=== PATIENT | male | born 1945 | race Caucasian/White ===

== ENCOUNTER 2016-10-31 07:48 | Day surgery (SDC) | payer MEDICARE, BC ==
[2016-10-31] MEDS ORDERED: LACTATED RINGERS 1,000 ML IV ONE (08:13)
[2016-10-31] MEDS ORDERED: MIDAZOLAM 2 MG/2 ML VIAL IVP ONE (09:50)
[2016-10-31] MEDS ORDERED: fentaNYL 250 MCG/5 ML VIAL IVP ONE (09:50)
== END 2016-10-31 07:49 | disposition home or self-care (01) ==
PROC: 0DBN8ZX Excision of Sigmoid Colon, Via Natural or Artificial Opening Endoscopic, Diagnostic (ICD-10-PCS; 2016-10-31)
PROC: 0DBH8ZX Excision of Cecum, Via Natural or Artificial Opening Endoscopic, Diagnostic (ICD-10-PCS; principal; 2016-10-31 09:00)
DX: D12.0 Benign neoplasm of cecum (principal); D12.5 Benign neoplasm of sigmoid colon; K64.8 Other hemorrhoids; K57.30 Diverticulosis of large intestine without perforation or abscess without bleeding; I10 Essential (primary) hypertension; Z79.82 Long term (current) use of aspirin; Z85.118 Personal history of other malignant neoplasm of bronchus and lung; Z92.21 Personal history of antineoplastic chemotherapy; Z92.3 Personal history of irradiation; Z82.49 Family history of ischemic heart disease and other diseases of the circulatory system; J44.9 Chronic obstructive pulmonary disease, unspecified
CPT/HCPCS: 45385; J7120

== ENCOUNTER 2016-11-16 11:56 | Outpatient (CLI) | payer MEDICARE, BC | END 2016-11-16 11:57 | disposition home or self-care (01) | DX: E29.8 Other testicular dysfunction (principal) ==

== ENCOUNTER 2016-12-19 14:20 | Outpatient (CLI) | payer MEDICARE, BC | END 2016-12-19 14:21 | disposition home or self-care (01) | DX: E29.8 Other testicular dysfunction (principal) ==

== ENCOUNTER 2017-10-05 13:49 | Outpatient (CLI) | payer MEDICARE, BC | END 2017-10-05 13:50 | disposition home or self-care (01) | LOC: DI 13:49 | PROVIDERS: ATTEND Family Medicine | DX: R06.01 Orthopnea (principal); I10 Essential (primary) hypertension; I51.7 Cardiomegaly | CPT/HCPCS: 93306 ==

== ENCOUNTER 2017-10-16 15:26 | Outpatient (CLI) | payer MEDICARE, BC | END 2017-10-16 15:27 | disposition home or self-care (01) | LOC: SC 15:26 | PROVIDERS: ATTEND Internal Medicine Pulmonary Disease | DX: G47.10 Hypersomnia, unspecified (principal); G47.8 Other sleep disorders; R06.83 Snoring | CPT/HCPCS: 99203; G0463; 99212 ==

== ENCOUNTER 2018-01-17 11:56 | Outpatient (CLI) | payer MEDICARE, BC ==
--- NOTE | 2018-01-18 08:36 | Nuclear Medicine Report ---
Procedure Date: 01/17/2018 Accession Number: [id number] / [id number] Procedure: NM - Bone Whole Body CPT Code: FULL RESULT: EXAM: BONE SCAN EXAM DATE: 01/17/2018 03:33 PM. CLINICAL HISTORY: BONE CANCER METS, LUNG CANCER. COMPARISON: CT 01/04/2018. TECHNIQUE: Following the intravenous administration of 30.9 mCi of technetium 99m MDP and an appropriate delay, a whole-body scan was performed in anterior and posterior projections. FINDINGS: Exam Quality: Normal overall osseous radiotracer uptake. Physiological tracer uptake in bilateral collecting systems. Skull: No focal uptake. Thorax: No focal lesions in ribs or sternum. Pelvis: No focal lesions. Spine: There is mildly increased uptake in the lower thoracic spine and in the mid to lower lumbar spine corresponding with degenerative endplate changes on CT. Extremities: There are small foci of increased uptake in the medial compartments of both knees and in the right greater than left wrists which is presumably degenerative. There is a tiny focus of increased uptake in the distal left fibula. There is a small focus of increased uptake in the region of the right great toe MTP joint. IMPRESSION: 1. There is a small focus of increased uptake in the distal left fibula which is of unclear etiology, metastasis not excluded. 2. 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 3. Presumed degenerative uptake in the wrists, knees, and right great toe MTP joint. [facility] ADDENDUM: 02/09/18 13:00 There was a voice recognition intensive care anaesthetist error. Under impression 2, "nodes or finding" should read "no other findings"
== END 2018-01-17 11:57 | disposition home or self-care (01) ==
LOC: DI 11:56
PROVIDERS: ATTEND Internal Medicine
DX: C34.90 Malignant neoplasm of unspecified part of unspecified bronchus or lung (principal)
CPT/HCPCS: 78306; A9503

== ENCOUNTER 2018-01-18 13:27 | Outpatient (CLI) | payer MEDICARE, BC ==
[~2018-01-18 13:27] MED LIST: GADOBUTROL 10 MMOL/10 ML VIAL ONE
[2018-01-18] MEDS ORDERED: IOPAMIDOL-300 100 ML VIAL ONE (13:47)
[2018-01-18] MEDS ORDERED: GADOBUTROL 10 MMOL/10 ML VIAL IVP ONE (14:09)
--- NOTE | 2018-01-18 15:03 | CT Report ---
Procedure Date: 01/18/2018 Accession Number: [id number] / [id number] Procedure: CT - Neck Soft Tissue W/ CPT Code: FULL RESULT: EXAM: Neck Soft Tissue W/ DATE: 01/18/2018 1:49 PM CLINICAL HISTORY: BONE CANCER METS, LUNG CANCER COMPARISON: None. TECHNIQUE: Routine soft tissue neck CT protocol. IV contrast: 80 mL Isovue 300 Reconstructions: Coronal and sagittal. In accordance with CT protocol optimization, one or more of the following dose reduction techniques were utilized for this exam: automated exposure control, adjustment of mA and/or KV based on patient size, or use of iterative reconstructive technique. FINDINGS: Bones: Degenerative changes. No evidence of fracture. Glands: The salivary glands, thyroid gland, and tonsillar tissues are normal in size and enhancement. Soft Tissues: Normal. No adenopathy, abscess, or mass. No airway narrowing. No foreign bodies identified. Other: Please refer to previous chest CT of 01/04/2018 and chest x-ray 01/18/2018 for lung findings. IMPRESSION: No evidence of metastatic disease in the neck. RADIA
[2018-01-18] MEDS ORDERED: IOPAMIDOL-300 100 ML VIAL IVP ONE (15:50)
--- NOTE | 2018-01-19 09:59 | MRI Report ---
Procedure Date: 01/18/2018 Accession Number: [id number] / [id number] Procedure: MRI - Brain W/WO CPT Code: FULL RESULT: EXAM: MRI BRAIN WITHOUT AND WITH CONTRAST EXAM DATE: 01/18/2018 02:04 PM. CLINICAL HISTORY: BONE CANCER METS, LUNG CANCER. COMPARISON: None. TECHNIQUE: Multiplanar, multisequence T1-weighted and fluid-sensitive MR sequences of the brain were performed. Sequences optimized for routine evaluation. Other: None. IV Contrast: 10 mL Gadavist. FINDINGS: The images are degraded by motion. This is greatest on the postcontrast images. The diffusion-weighted images are normal. There is no evidence of acute or subacute cerebral infarction. The pituitary and sella are normal. The corpus callosum is of normal size and configuration. The craniocervical junction is normal. There are multiple mucous retention cysts at the base of the right and left maxillary sinuses. There is atrophy demonstrated within the right paraspinal musculature at the skull base. Recommend correlation. There is tortuosity of the left vertebral artery intradural segment producing mass effect against the ventral left medulla oblongata. There is no underlying edema demonstrated at this location. There is a small focus of encephalomalacia of the left parietal lobe. The FLAIR images demonstrate multiple punctate and confluent areas of T2 hyperintensity within the subcortical, deep, and periventricular white matter. This is consistent with a mild to moderate degree of chronic small vessel ischemia. There is no significant generalized volume loss. The postcontrast T1-weighted images grossly normal. There is no large area of abnormal enhancement to suggest a large area of brain metastasis. IMPRESSION: 1. The images are degraded by motion. This is greatest on the postcontrast images. Given this limitation there is no large area of abnormal contrast enhancement to suggest a large metastatic lesion. 2. There is no evidence of acute or subacute cerebral infarction. 3. There is mild to moderate degree of chronic small vessel ischemia .
== END 2018-01-18 13:28 | disposition home or self-care (01) ==
LOC: DI 13:27
PROVIDERS: ATTEND Internal Medicine
DX: C34.90 Malignant neoplasm of unspecified part of unspecified bronchus or lung (principal); R59.0 Localized enlarged lymph nodes; R91.8 Other nonspecific abnormal finding of lung field; J44.9 Chronic obstructive pulmonary disease, unspecified; I10 Essential (primary) hypertension
CPT/HCPCS: 70491; 70553; 71046; 93005; A9585; Q9967

== ENCOUNTER 2018-01-18 13:27 | Outpatient (CLI) | payer MEDICARE, BC ==
--- NOTE | 2018-01-18 14:50 | XRAY Report ---
Procedure Date: 01/18/2018 Accession Number: [id number] / [id number] Procedure: XR - Chest 2 View X-Ray CPT Code: 45043 FULL RESULT: EXAM: Chest 2 View X-Ray DATE: 01/18/2018 2:40 PM CLINICAL HISTORY: HYPERTENSION/LUNG CANCER, COPD COMPARISON: 09/15/2017 TECHNIQUE: 2 views. FINDINGS: Lungs/Pleura: New right-sided infiltrates. Persistent left hilar fullness. No effusion or pneumothorax. Mediastinum: Persistent left hilar fullness. No cardiomegaly. Other: Right jugular port extending out the right subclavian, stable. IMPRESSION: New right-sided infiltrates. Stable left hilar lesion. RADIA
== END 2018-01-18 13:28 | disposition home or self-care (01) ==
LOC: DI 13:27
PROVIDERS: ATTEND Internal Medicine Gastroenterology
DX: R91.8 Other nonspecific abnormal finding of lung field (principal); C34.90 Malignant neoplasm of unspecified part of unspecified bronchus or lung; J44.9 Chronic obstructive pulmonary disease, unspecified; I10 Essential (primary) hypertension
CPT/HCPCS: 71046

== ENCOUNTER 2018-01-22 08:51 | Day surgery (SDC) | payer MEDICARE, BC ==
[2018-01-22] MEDS ORDERED: LACTATED RINGERS 1,000 ML IV ONE ×2 (09:31→14:00)
[2018-01-22] MEDS ORDERED: ceFAZolin 3 GM/20 ML SYRINGE ONE (09:38)
[2018-01-22] MEDS ORDERED: IPRATROPIUM/ALBUTEROL 3 ML NEB INH ONE (09:38)
[2018-01-22] MEDS ORDERED: BUPIVACAINE 0.5%-EPI 1:200000 PF 30 ML VIAL ONE (13:05)
[2018-01-22] MEDS ORDERED: LIDOCAINE 1% 50 ML MDV SUBQ ONE ×2 (13:40)
[2018-01-22] MEDS ORDERED: LIDOCAINE-MPF 2% 5 ML VIAL IM ONE (13:55)
[2018-01-22] MEDS ORDERED: MIDAZOLAM 2 MG/2 ML VIAL IVP ONE (13:55)
[2018-01-22] MEDS ORDERED: ONDANSETRON 4 MG/2 ML VIAL IVP ONE (13:55)
[2018-01-22] MEDS ORDERED: PROPOFOL 200 MG/20 ML VIAL IVP ONE (13:55)
[2018-01-22] MEDS ORDERED: fentaNYL 100 MCG/2 ML VIAL IVP ONE (13:55)
--- NOTE | 2018-01-22 15:41 | XRAY Report ---
Procedure Date: 01/22/2018 Accession Number: [id number] / [id number] Procedure: XR - Chest for Line Placement CPT Code: FULL RESULT: EXAM: Chest for Line Placement DATE: 01/22/2018 3:16 PM CLINICAL HISTORY: post line placement COMPARISON: None. TECHNIQUE: Single view of the chest. FINDINGS/IMPRESSION: Left Port-A-Cath ends in the inferior third of the superior vena cava. No pneumothorax is seen. RADIA
[2018-01-22 15:48] VITALS: BP 128/80
--- NOTE | 2018-01-23 02:34 | PROCEDURE REPORT ---
DATE OF SERVICE: Physician: Presley Frey MD PREOPERATIVE DIAGNOSES: 1. Stage IV lung cancer. 2. Malfunctioning port. POSTOPERATIVE DIAGNOSES: 1. Stage IV lung cancer. 2. Malfunctioning port. PROCEDURE PERFORMED: 1. Insertion of standard profile PowerPort on the left. 2. Removal of malfunctioning port on the right. ANESTHESIA: Local plus monitored anesthesia care. SURGEON: Presley Frey MD ESTIMATED BLOOD LOSS: Minimal. COMPLICATIONS: None. FINDINGS: A standard profile PowerPort was placed with the reservoir in a subcutaneous pocket in the left anterior chest wall. Catheter tip was located in the superior vena cava and access was the left subclavian vein. On the right side, the old port was removed with the entire attached catheter. INDICATIONS FOR PROCEDURE: Neto Vazquez is a 72-year-old gentleman with stage IV lung cancer in need of palliative chemotherapy. He had a prior port placed several years ago which is now malfunctioning and malpositioned and he was advised to undergo removal of the old port and placement of a new port. TECHNIQUE: After informed consent, the patient was taken to the operating room where he was sedated and monitored. Preoperative preparation included application of sequential calf compression boots and administration of 2 grams cefazolin intravenously within an hour of the incision. His anterior chest wall and neck were prepared with ChloraPrep solution and draped in the usual sterile fashion. Lidocaine 1% plain and 0.5% Marcaine with epinephrine was used for local infiltration anesthesia; approximately 20 mL of each were used. A stab wound was made in the left anterior chest wall below the midclavicular line with an #11 blade and a needle and syringe were used to identify the left subclavian vein. A guidewire was passed into the central venous circulation and position was confirmed with fluoroscopy. The needle was removed. The tract was dilated and the 8-[place] catheter, which had been flushed with sterile saline for injection, was then inserted into the central venous circulation and catheter tip position again confirmed with fluoroscopy. The breakaway catheter was removed. The incision was extended medially approximately 3-4 cm. Hemostasis was achieved with electrocautery. Subcutaneous pocket was created of sufficient size to allow placement of the port reservoir. The reservoir was flushed with saline soaked in antibiotic solution containing a gram of Ancef per liter. After the pocket had been created and hemostasis assured, the wound was irrigated with antibiotic solution. The catheter was trimmed to appropriate length and attached to the hub of the reservoir with the locking device properly positioned and attached to the hub overlying the catheter. The reservoir was then placed in the pocket and secured in place with two 4-0 nylon sutures to the pectoral fascia. The wound was then irrigated with antibiotic solution and closed in layers with continuous 3-0 Vicryl reapproximating subcutaneous tissues and 4-0 Monocryl subcuticular skin closure, followed by Dermabond. A Gutierrez needle was used to access the port percutaneously. It was seen to aspirate blood and flush easily. The port was flushed with 20 mL of sterile saline. Attention was turned to the contralateral side where a transverse incision was made over the prior port insertion site, carried down through subcutaneous tissues. The capsule surrounding the reservoir was entered and the port fully mobilized and exteriorized. The catheter was then mobilized with sharp dissection until it was free of scar tissue and then was removed in its entirety and discarded. After hemostasis was assured, the wound was closed in layers using 3-0 Vicryl to reapproximate the deep subcutaneous tissues, a similar suture for the superficial subcutaneous tissues, followed by 4-0 Monocryl subcuticular skin closure and Dermabond. The procedure was then terminated and patient transferred to the [facility] in satisfactory condition. Sponge and needle counts were correct x2. No drains were used. A followup portable upright chest x-ray showed catheter tip in good position. No apparent complications. TD: 01/22/2018 15:31 LOWELL
--- NOTE | 2018-01-23 16:27 | XRAY Report ---
Procedure Date: 01/22/2018 Accession Number: [id number] / [id number] Procedure: FL - OR Port-A-Cath CPT Code: FULL RESULT: EXAM: OR Port-A-Cath DATE: 01/22/2018 3:39 PM CLINICAL HISTORY: Port Placement FINDINGS/IMPRESSION: C-arm fluoroscopic assistance is provided for Port-A-Cath placement. 2 seconds of fluoroscopy time are used. 1 image is obtained.
== END 2018-01-22 08:52 | disposition home or self-care (01) ==
LOC: SDS 08:51
PROVIDERS: ATTEND Internal Medicine Gastroenterology
PROC: 0JH60WZ Insertion of Totally Implantable Vascular Access Device into Chest Subcutaneous Tissue and Fascia, Open Approach (ICD-10-PCS; 2018-01-22)
PROC: 0JPT0WZ Removal of Totally Implantable Vascular Access Device from Trunk Subcutaneous Tissue and Fascia, Open Approach (ICD-10-PCS; principal; 2018-01-22 10:15)
DX: T82.514A Breakdown (mechanical) of infusion catheter, initial encounter (principal); I10 Essential (primary) hypertension; C34.91 Malignant neoplasm of unspecified part of right bronchus or lung; C34.92 Malignant neoplasm of unspecified part of left bronchus or lung; K21.9 Gastro-esophageal reflux disease without esophagitis; J43.9 Emphysema, unspecified; E29.1 Testicular hypofunction; Z79.82 Long term (current) use of aspirin; F17.210 Nicotine dependence, cigarettes, uncomplicated
CPT/HCPCS: 36561; 36590; C1788; J7120; 71045

== ENCOUNTER 2018-02-01 00:20 | Inpatient (IN) | payer MEDICARE, BC ==
[2018-02-01] MEDS ORDERED: ALBUTEROL NEB 2.5 MG/3 ML INH STA ×2 (00:33→02:37)
[2018-02-01] MEDS ORDERED: IPRATROPIUM/ALBUTEROL 3 ML NEB INH STA (00:33)
[2018-02-01] MEDS ORDERED: methylPREDNISolone SUCCINATE 125 MG/2 ML VIAL IVP STA (00:38)
[2018-02-01] MEDS ORDERED: diphenhydrAMINE INJ 50 MG/ML VIAL IVP STA (00:39)
[2018-02-01] MEDS ORDERED: FAMOTIDINE 20 MG/2 ML VIAL IVP STA (00:39)
[2018-02-01 00:59] LABS: BASOPHILS # (AUTO) 0.1 10^3/uL (0.0-0.1); BASOPHILS % (AUTO) 0.7 %; EOSINOPHILS # (AUTO) 0.1 10^3/uL (0.0-0.7); EOSINOPHILS % (AUTO) 0.5 %; HGB - HEMOGLOBIN 14.2 g/dL (14.0-18.0); LYMPHOCYTES % (AUTO) 7.2 %; MEAN CORPUSCULAR HEMOGLOBIN 29.3 pg (27.0-31.0); MEAN CORPUSCULAR HGB CONC 33.3 g/dL (32.0-36.0); MEAN CORPUSCULAR VOLUME 87.9 fL (80.0-94.0); MEAN PLATELET VOLUME 6.4 fL (7.4-11.4); MONOCYTES # (AUTO) 0.7 10^3/uL (0.0-1.0); MONOCYTES % (AUTO) 4.6 %; NEUTROPHILS # (AUTO) 12.5 10^3/uL (1.5-6.6); PLT - PLATELET COUNT 247 10^3/uL (130-450); RED BLOOD COUNT 4.86 10^6/uL (4.70-6.10); RED CELL DISTRIBUTION WIDTH 16.5 % (12.0-15.0); WHITE BLOOD COUNT 14.4 x10^3/uL (4.8-10.8)
[2018-02-01 01:08] LABS: ALBUMIN 3.3 g/dL (3.2-5.5); ALBUMIN/GLOBULIN RATIO 0.8 (1.0-2.2); BILIRUBIN,TOTAL 1.3 mg/dL (0.2-1.0); TOTAL PROTEIN 7.4 g/dL (6.7-8.2)
[2018-02-01] MEDS ORDERED: SODIUM CHLORIDE 0.9% 1,000 ML IV ONE (01:20)
--- NOTE | 2018-02-01 01:29 | ED Physician Documentation ---
PD HPI DYSPNEA - Stated complaint Stated Complaint: DIFFICULTY BREATHING - Chief complaint Chief Complaint: Resp - History obtained from History obtained from: Patient, Family - History of Present Illness Timing - onset: How many weeks ago (4) Timing - details: Gradual onset, Still present, Intermittant Improved by: O2 Associated symptoms: Cough, Wheezing Similar symptoms before: Work up / diagnostics, Treatment Recently seen: Not recently seen - Additional information Additional information: Patient is 72 year old male with a history of lung CA, (not currently on chemo) , copd who is presenting to the emergency department for cough and shortness of breath. patient states that he has not been feeling well for weeks but over the last couple of days he has been getting even worse. patient states that he took his oxygen levels at home and it was in the high 80s and normally he is 94- 95% Review of Systems Constitutional: reports: Myalgias, Sweats. denies: Fever Cardiac: reports: Chest pain / pressure Respiratory: reports: Dyspnea, Cough, Hemoptysis, Wheezing GI: denies: Nausea, Vomiting : reports: Reviewed and negative Skin: denies: Rash, Lesions Musculoskeletal: denies: Extremity swelling Neurologic: denies: Generalized weakness, Focal weakness Immunocompromised: denies: Immunocompromised PD PAST MEDICAL HISTORY - Past Medical History Cardiovascular: Hypertension, High cholesterol Respiratory: COPD, Emphysema Endocrine/Autoimmune: None GI: GERD, Ulcers, Colon polyps HEENT: Chronic sinusitis Psych: Depression, Anxiety, Panic attacks Musculoskeletal: None Derm: Other - Past Surgical History Past Surgical History: Yes General: Colonoscopy HEENT: Tonsil/Adenoidectomy Derm: Skin cancer surgery - Present Medications Home Medications: Ambulatory Orders Medication Instructions Recorded Confirmed Aspirin EC [Ecotrin] 325 mg PO DAILY 01/19/18 01/24/18 Aspirin [Aspirin EC] 81 mg PO DAILY 01/19/18 01/24/18 Fluoxetine HCl 40 mg PO DAILY 01/19/18 01/24/18 Fluticasone/Salmeterol [Advair 1 each IH BID 01/19/18 01/24/18 100-50 Diskus] LORazepam [Lorazepam] 0.5 - 1 mg PO DAILY 01/19/18 01/24/18 Losartan/Hydrochlorothiazide 1 each PO DAILY 01/19/18 01/24/18 [Hyzaar 100-12.5 Tablet] Metoprolol Tartrate 100 mg PO DAILY 01/19/18 01/24/18 Montelukast Sodium 10 mg PO DAILY 01/19/18 01/24/18 Multivitamin [Multivitamins] 1 each PO DAILY 01/19/18 01/24/18 Pantoprazole Sodium 40 mg PO DAILY 01/19/18 01/24/18 Pramipexole [Mirapex] 0.25 mg PO DAILY 01/19/18 01/24/18 Pravastatin Sodium 10 mg PO DAILY 01/19/18 01/24/18 Sildenafil Citrate [Viagra] 100 mg PO ONCE PRN 01/19/18 01/24/18 Testosterone Cypionate 200 mg IM Q7D 01/19/18 01/24/18 [Depo-Testosterone] Umeclidinium Brm/Vilanterol Tr 1 each IH DAILY 01/19/18 01/24/18 [Anoro Ellipta 62.5-25 Mcg INH] Umeclidinium Brm/Vilanterol Tr 0 mg PO DAILY 01/22/18 01/24/18 [Anoro Ellipta 62.5-25 Mcg INH] - Allergies Allergies/Adverse Reactions: Allergies Allergy/AdvReac Type Severity Reaction Status Date / Time bupropion [From Wellbutrin] Allergy Unknown Verified 01/22/18 10:03 fexofenadine HCl * Allergy Cramps Verified 01/22/18 10:03 [From Bessie] Iodinated Contrast- Oral and Allergy Itching Verified 01/22/18 10:03 IV Dye - Social History Does the pt smoke?: Yes Smoking Status: Current every day smoker Does the pt drink ETOH?: Yes Does the pt have substance abuse?: No - Immunizations Immunizations are current?: Yes - POLST Patient has POLST: No PD ED PE NORMAL - Abdomen Abdomen: Soft - Derm Derm: Normal color - Extremities Extremities: No deformity - Neuro Neuro: Alert and oriented X 3, No motor deficit, Normal speech Eye Opening: Spontaneous Motor: Obeys Commands Verbal: Oriented GCS Score: 15 PD ED PE EXPANDED - General General: Alert, Other (ill appearing) - HEENT HEENT: Dry mucous membranes - Cardiac Cardiac: Regular Rate - Respiratory Respiratory: Accessory mm use, Wheezing, Rhonchi, Decreased breath sounds, Right upper lobe, Right middle lobe, Right lower lobe, Left upper lobe, Left lower lobe Results - Vitals Vitals: Vital Signs - 24 hr 02/01/18 02/01/18 02/01/18 00:32 00:41 01:17 Temperature 37.4 C Heart Rate 99 94 95 Respiratory 22 20 21 Rate Blood Pressure 137/73 H 141/73 H O2 Saturation 89 L 92 02/01/18 02/01/18 02:10 02:54 Temperature Heart Rate 97 95 Respiratory 23 22 Rate Blood Pressure 148/63 H O2 Saturation 93 Oxygen O2 Source Nasal cannula - EKG (time done) 0041 Rate: Rate (enter#) (95) Rhythm: NSR [place]: Normal Intervals: Normal NV QRS: Normal Compare to prior EKG: Unchanged from prior EKG - Labs Labs: Laboratory Tests 02/01/18 02/01/18 02/01/18 00:45 00:45 00:45 WBC 14.4 H RBC 4.86 Hgb 14.2 Hct 42.7 MCV 87.9 MCH 29.3 MCHC 33.3 RDW 16.5 H Plt Count 247 MPV 6.4 L Neut # (Auto) 12.5 H Lymph # (Auto) 1.0 L Iron # (Auto) 0.7 Eos # (Auto) 0.1 Baso # (Auto) 0.1 Absolute Nucleated RBC 0.00 Nucleated RBC % 0.0 Sodium 121 L Potassium 4.2 Chloride 85 L Carbon Dioxide 27 Anion Gap 9.0 BUN 13 Creatinine 1.0 Estimated GFR (MDRD) 73 L Glucose 110 H Lactic Acid Calcium 8.0 L Total Bilirubin 1.3 H AST 41 ALT 25 Alkaline Phosphatase 61 Troponin I < 0.04 B-Natriuretic Peptide Total Protein 7.4 Albumin 3.3 Globulin 4.1 Albumin/Globulin Ratio 0.8 L Lipase 30 02/01/18 02/01/18 00:45 00:45 WBC RBC Hgb Hct MCV MCH MCHC RDW Plt Count MPV Neut # (Auto) Lymph # (Auto) Iron # (Auto) Eos # (Auto) Baso # (Auto) Absolute Nucleated RBC Nucleated RBC % Sodium Potassium Chloride Carbon Dioxide Anion Gap BUN Creatinine Estimated GFR (MDRD) Glucose Lactic Acid 1.4 Calcium Total Bilirubin AST ALT Alkaline Phosphatase Troponin I B-Natriuretic Peptide 89 Total Protein Albumin Globulin Albumin/Globulin Ratio Lipase - Rads (name of study) ct chest angio Radiology: Final report received, See rad report (multiple findings but no PE) PD MEDICAL DECISION MAKING - ED course Complexity details: reviewed old records, reviewed results, re-evaluated patient , considered differential, d/w patient, d/w family, d/w senior talent management consultant ED course: Patient was seen and examined at bedside. IV access was gained and labs were drawn. ekg was performed and was unchanged from previous. Patient was started on a duoneb breathing treatment. Patient was high risk for PE so CT chest angio was ordered. Patient was premedicated with benadryl, pepcid and solumedrol. Patient was treated with an albuterol treatment. Patient was sent for imaging. When patient returned the results were reviewed. patient was started on rocephin. Hospitalist was contacted and the case was discussed with him. patient was admitted for further evaluation and care. - Sepsis Event Vital Signs: Vital Signs - 24 hr 02/01/18 02/01/18 02/01/18 00:32 00:41 01:17 Temperature 37.4 C Heart Rate 99 94 95 Respiratory 22 20 21 Rate Blood Pressure 137/73 H 141/73 H O2 Saturation 89 L 92 02/01/18 02/01/18 02:10 02:54 Temperature Heart Rate 97 95 Respiratory 23 22 Rate Blood Pressure 148/63 H O2 Saturation 93 Oxygen O2 Source Nasal cannula Departure - Departure Disposition: [facility] DC/Xfer Clinical Impression: Pneumonia, Dyspnea, Moderate COPD (chronic obstructive pulmonary disease) Condition: Stable
[2018-02-01] MEDS ORDERED: LORazepam 2 MG/ML VIAL IVP STA (01:42)
[2018-02-01] MEDS ORDERED: IOPAMIDOL-300 100 ML VIAL ONE (01:48)
[2018-02-01] MEDS ORDERED: IOPAMIDOL-300 100 ML VIAL IVP ONE (02:08)
[2018-02-01] MEDS ORDERED: cefTRIAXone 1 GM in SODIUM CHLORIDE 0.9% MINIBAG 100 ML IV STA (02:47)
--- NOTE | 2018-02-01 02:49 | CT Report ---
Procedure Date: 02/01/2018 Accession Number: [id number] / [id number] Procedure: CT - Chest Angio (PE) CPT Code: FULL RESULT: EXAM: CT ANGIOGRAM CHEST EXAM DATE: 02/01/2018 02:10 AM. CLINICAL HISTORY: Shortness of breath. History of lung cancer. COMPARISON: 01/04/2018. TECHNIQUE: Routine helical imaging was performed through the chest in the pulmonary arterial phase. IV Contrast: ISOVUE 300 80mL. Reconstructions: Coronal 3-D MIP reconstructions.Sagittal and coronal. In accordance with CT protocol optimization, one or more of the following dose reduction techniques were utilized for this exam: automated exposure control, adjustment of mA and/or KV based on patient size, or use of iterative reconstructive technique. FINDINGS: Pulmonary Arteries: Diagnostic quality: Adequate through the segmental arteries. No evidence for acute or chronic pulmonary emboli. There is encasement and narrowing of multiple pulmonary artery branches, most severe in the right upper lobe. No evidence of right heart strain. Lungs/Pleura: There is worsening perihilar and paramediastinal soft tissue density, right much greater than left. Some of this may be due to radiation. There may be progression of malignancy as well. There is encasement and narrowing of the bronchi, right worse than left. Worsening postobstructive infiltrates are seen in the right lung, most severe in the upper lobe. Focal right lower lobe opacity is seen possibly representing metastasis, measuring 1.2 cm, series 6 image 109. New patchy groundglass opacities are seen in the lingula and left lower lobe. There is possible asymmetric pulmonary vascular congestion, right worse than left. No definite pleural effusion is seen. No pneumothorax is noted. Mediastinum: Heart size is normal. Coronary artery calcifications. Increased mediastinal and right hilar adenopathy. Thoracic Aorta: Moderate atherosclerosis. No aneurysm or dissection. Upper Abdomen: Liver cysts are again seen. There are some liver lesions which are not well characterized. These are similar compared with the prior CT. Other: Possible osseous metastatic disease in the spine. IMPRESSION: 1. No pulmonary emboli seen. 2. Worsening perihilar and paramediastinal soft tissue densities, right greater than left. Some of this is probably due to radiation but there could be progression of malignancy as well. 3. Narrowing of right pulmonary artery branches and bronchi with extensive postobstructive infiltrates. There is milder degree of narrowing on the left as well. 4. Infiltrate versus metastasis in the right lower lobe. 5. New groundglass infiltrates in the lingula and left lower lobe, possibly pneumonia. 6. Increasing mediastinal and right hilar adenopathy. 7. Possible osseous metastatic disease in the spine. RADIA
[2018-02-01] MEDS ORDERED: ACETAMINOPHEN 325 MG TABLET PO PRN (03:02)
[2018-02-01] MEDS ORDERED: oxyCODONE 5 MG TABLET PO PRN ×2 (03:02)
[2018-02-01] MEDS ORDERED: PROCHLORPERAZINE 10 MG/2 ML VIAL IVP PRN (03:02)
[2018-02-01] MEDS ORDERED: PROMETHAZINE 25 MG/1 ML VIAL IM PRN (03:02)
[2018-02-01] MEDS ORDERED: ZOLPIDEM 5 MG TABLET PO PRN (03:02)
[2018-02-01] MEDS ORDERED: ONDANSETRON 4 MG/2 ML VIAL IVP PRN (03:02)
[2018-02-01] MEDS: predniSONE 20 MG TABLET PO SCH ×2 (04:10→10:25)
[2018-02-01] MEDS: IPRATROPIUM/ALBUTEROL 3 ML NEB INH PRN ×2 (04:19→16:38)
[2018-02-01] MEDS ORDERED: LORazepam 0.5 MG TABLET PO STA (04:20)
[2018-02-01] MEDS: SODIUM CHLORIDE 0.9% 1,000 ML IV SCH ×2 (04:29→19:02)
[2018-02-01] MEDS: NICOTINE 21 MG PATCH TOP SCH ×2 (04:36→10:21)
[2018-02-01] MEDS ORDERED: AZITHROMYCIN INJ 500 MG in SODIUM CHLORIDE 0.9% 250 ML IV SCH (05:00)
[2018-02-01 05:19] LABS: BASOPHILS % (AUTO) 0.1 %; EOSINOPHILS % (AUTO) 0.1 %; HGB - HEMOGLOBIN 13.9 g/dL (14.0-18.0); LYMPHOCYTES # (AUTO) 0.6 10^3/uL (1.5-3.5); MEAN CORPUSCULAR HEMOGLOBIN 28.8 pg (27.0-31.0); MEAN CORPUSCULAR HGB CONC 32.9 g/dL (32.0-36.0); MEAN CORPUSCULAR VOLUME 87.5 fL (80.0-94.0); MONOCYTES # (AUTO) 0.3 10^3/uL (0.0-1.0); MONOCYTES % (AUTO) 2.2 %; NEUTROPHILS % (AUTO) 93.6 %; PLT - PLATELET COUNT 241 10^3/uL (130-450); RED BLOOD COUNT 4.82 10^6/uL (4.70-6.10); RED CELL DISTRIBUTION WIDTH 16.6 % (12.0-15.0); WHITE BLOOD COUNT 14.9 x10^3/uL (4.8-10.8)
[2018-02-01 05:32] LABS: MAGNESIUM 1.6 mg/dL (1.7-2.8); PHOSPHORUS 2.5 mg/dL (2.5-4.6)
--- NOTE | 2018-02-01 05:39 | HISTORY & PHYSICAL EXAMINATION ---
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 The patient states that he regularly checks his oxygen saturations at home and they usually run between 95 and 97%. He states that tonight when he checked his oxygen saturation and had dropped down to 88% and therefore he decided to come into the emergency department. The patient states he does have a chronic cough but has been slightly worse the last couple of days with increasing sputum production. The patient also states that he has been slightly more short of breath over the last day. He denies any fevers or chills but does admit to sweats. He denies any chest pain, palpitations, orthopnea or increased lower extremity swelling. The patient denies any recent unintentional weight loss or changes in his appetite. Patient denies any headaches, blurred vision, runny nose, sore throat, nasal congestion, difficulty swallowing, abdominal pain, nausea, vomiting, diarrhea, constipation, urinary urgency, urinary frequency, dysuria, joint pain, joint swelling, muscle aches, back pain, neck stiffness, skin rash, hair loss, or any focal neurologic deficits. On presentation to the emergency department the patient was afebrile heart rate was elevated at 99 and blood pressure was within normal limits. The patient did appear to be tachypneic and was in some mild respiratory distress. The patient was oxygenating at 89% on room air and had to be placed on 2 L of oxygen to maintain a oxygen saturation of around 93%. The patient's lab work revealed a leukocytosis of 14.4 and 8 hyponatremia with a sodium of 121. The patient's troponin was less than 0.04 and his BNP was only 89. The patient underwent a CT angiogram of his thorax which revealed worsening perihilar and para mediastinal soft tissue densities, right greater than left. Narrowing of the right pulmonary artery branches and bronchi with extensive postop obstructive infiltrates. Infiltrate versus metastasis in the right lower lobe and new groundglass infiltrates in the lingula and left lower lobe possibly pneumonia. The patient appeared very wheezy with rhonchorous breath sounds on lung exam. Patient was treated with neb treatments, prednisone and Rocephin in the emergency department and [facility] and COPD exacerbation. The patient's pneumonia severity index puts him at risk class V which has a mortality of 27-29% and hospitalization is recommended. History - Past Medical History Cardiovascular: reports: Hypertension, High cholesterol Respiratory: reports: COPD, Emphysema Neuro: reports: None Endocrine/Autoimmune: reports: None GI: reports: GERD, Ulcers, Colon polyps : reports: Frequency HEENT: reports: Chronic sinusitis Psych: reports: Depression, Anxiety, Panic attacks Musculoskeletal: reports: None Derm: reports: Other MRSA Hx?: No - Past Surgical History General: reports: Colonoscopy HEENT: reports: Tonsil/Adenoidectomy Derm: reports: Skin cancer surgery - Family & Social History Family History: Mother: Cancer, Other family: Diabetes, Type 2 (Grandmother had DM) Living arrangement: At home Living Situation: With spouse/s.o. Social History Notes: Patient is originally from [facility] and moved up to [facility] in 2016. 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 He had 3 children 1 of whom has . He currently lives with his . The patient is a smoker and has smoked for 52 years continues to smoke 1 pack per day. He states that he has 1 drink a night and denies any illicit drug use. - POLST Patient has POLST: No POLST Status: Full Code Meds/Allgy - Home Medications Home Medications: Ambulatory Orders Medication Instructions Recorded Confirmed Aspirin EC [Ecotrin] 325 mg PO DAILY 01/19/18 01/24/18 Aspirin [Aspirin EC] 81 mg PO DAILY 01/19/18 01/24/18 Fluoxetine HCl 40 mg PO DAILY 01/19/18 01/24/18 Fluticasone/Salmeterol [Advair 1 each IH BID 01/19/18 01/24/18 100-50 Diskus] LORazepam [Lorazepam] 0.5 - 1 mg PO DAILY 01/19/18 01/24/18 Losartan/Hydrochlorothiazide 1 each PO DAILY 01/19/18 01/24/18 [Hyzaar 100-12.5 Tablet] Metoprolol Tartrate 100 mg PO DAILY 01/19/18 01/24/18 Montelukast Sodium 10 mg PO DAILY 01/19/18 01/24/18 Multivitamin [Multivitamins] 1 each PO DAILY 01/19/18 01/24/18 Pantoprazole Sodium 40 mg PO DAILY 01/19/18 01/24/18 Pramipexole [Mirapex] 0.25 mg PO DAILY 01/19/18 01/24/18 Pravastatin Sodium 10 mg PO DAILY 01/19/18 01/24/18 Sildenafil Citrate [Viagra] 100 mg PO ONCE PRN 01/19/18 01/24/18 Testosterone Cypionate 200 mg IM Q7D 01/19/18 01/24/18 [Depo-Testosterone] Umeclidinium Brm/Vilanterol Tr 1 each IH DAILY 01/19/18 01/24/18 [Anoro Ellipta 62.5-25 Mcg INH] Umeclidinium Brm/Vilanterol Tr 0 mg PO DAILY 01/22/18 01/24/18 [Anoro Ellipta 62.5-25 Mcg INH] - Allergies Allergies/Adverse Reactions: Allergies Allergy/AdvReac Type Severity Reaction Status Date / Time bupropion [From Wellbutrin] Allergy Unknown Verified 01/22/18 10:03 fexofenadine HCl * Allergy Cramps Verified 01/22/18 10:03 [From Bessie] Iodinated Contrast- Oral and Allergy Itching Verified 01/22/18 10:03 IV Dye Review of Systems - Other Findings Other Findings: A comprehensive review of systems was performed the pertinent positives and negatives are stated above in the HPI and the remainder of the review of systems is negative. Exam - Vital Signs Reviewed Vital Signs: Yes Vital Signs: Vital Signs x48h Pulse Pulse Resp BP Pulse Ox 02/01/18 04:23 92 22 02/01/18 03:35 95 20 157/69 H 93 - Physical Exam General Appearance: positive: Alert, Moderate distress (Appears tachypneic with audible wheezing and respiratory distress) Eyes Bilateral: positive: Normal inspection, PERRL, EOMI, No lid inflammation, Conjunctivae nml, No scleral icterus ENT: positive: ENT inspection nml, Pharynx nml, Dry mucous membranes. negative : Purulent nasal drainage, Pharyngeal erythema, Oral lesions Neck: positive: Nml inspection, Thyroid nml, No JVD, Trachea midline. negative : Thyromegaly, Lymphadenopathy (R), Lymphadenopathy (L), Stiff neck, Carotid bruit, Swelling/bruising, Tracheal deviation Respiratory: positive: Chest non-tender, Wheezes (diffuse, bilateral), Rales, Rhonchi (Bilateral and diffuse), Other (Coarse, rhonchorous breath sounds throughout both lung davies, diffusely.) Cardiovascular: positive: Regular rate & rhythm, No murmur, No gallop Peripheral Pulses: positive: 2+ Abdomen: positive: Non-tender, No organomegaly, Nml bowel sounds, No distention , Other (Obese). negative: Guarding, Rebound, Hepatomegaly Back: positive: Nml inspection. negative: CVA tenderness (R), CVA tenderness (L ) Skin: positive: Color nml, No rash, Warm. negative: Cyanosis, Diaphoresis, Pallor, Skin rash Extremities: positive: Non-tender, Full ROM, Nml appearance, No pedal edema Neurologic/Psychiatric: positive: Oriented x3, CN's nml (2-12), Motor nml, Sensation nml, Mood/affect nml Conclusion/Plan - Problem List (1) CAP (community acquired pneumonia) Conclusion/Plan: Patient presented with hypoxia, shortness of breath and cough. He was in mild respiratory distress on presentation. Patient had leukocytosis and hyponatremia. Patient's pneumonia severity index put him at a risk class V which has a mortality of 27-29% and hospitalization was recommended. The CT of the patient's chest revealed postobstructive infiltrates in the right lung, infiltrates in the right lower lobe and new groundglass infiltrates in the left lower lobe. Patient appears to have extensive pneumonia and extensive cancer in his lungs. This is likely also leading to COPD exacerbation as he has diffuse wheezing, rhonchi and coarse breath sounds. Plan: Treat patient with IV ceftriaxone and azithromycin for community-acquired pneumonia Treat COPD exacerbation with duo nebs and steroids Supplemental oxygen Discuss with oncology about possible transfer due to progressing lung cancer and possible postobstructive pneumonia. Robitussin as needed for cough Qualifiers: Laterality: unspecified laterality Qualified Code(s): J18.9 - Pneumonia, unspecified organism (2) COPD exacerbation Conclusion/Plan: Patient appears to have COPD exacerbation in the setting of a pneumonia and recurrence of cancer. The patient also continues to smoke. On presentation the patient is hypoxic and in some mild respiratory distress. The patient has wheezing diffusely. He was given several nebulizer treatments in the emergency department with mild improvement. He was also given steroids in the emergency department. Plan: Treat pneumonia with IV antibiotics Duo nebs around the clock 24 hours and as needed Prednisone p.o. daily Supplemental oxygen Advised to quit smoking (3) Lung cancer Conclusion/Plan: Patient has a history of lung cancer and now appears to have recurrence of disease. He is being followed by oncology as an outpatient. He is scheduled for a PET CT scan and then will follow up with oncology. Compared to his CT 1 month ago it appears on CT today that he has progression of his cancer and now also has infiltrates and pneumonia with possible postobstructive pneumonia. Patient will be treated here with IV antibiotics. We will contact the patient' s oncologist to see if patient needs to be transferred to Center with oncology or if he can be treated here with just IV antibiotics. I am concerned if he does have postobstructive pneumonia that he may need to be started on treatment for his cancer in order to control the pneumonia or that he may need a bronch or stent. Qualifiers: Laterality: unspecified laterality (4) Tobacco abuse Conclusion/Plan: Patient continues to smoke despite diagnosis of cancer a number of years back and now recurrence of cancer. Patient states he has tried this quit many times but has been unsuccessful. Patient was counseled on his need to quit smoking. He will be given a nicotine patch while he is hospitalized. (5) Hypertension Conclusion/Plan: Patient has a history of hypertension and takes metoprolol as well as losartan/ hydrochlorothiazide for control of his hypertension. On presentation to the emergency department the patient was normotensive. Patient will be continued on his home antihypertensive medications while he is hospitalized. We will continue to monitor the patient's blood pressure and titrate medications as needed Qualifiers: Hypertension type: essential hypertension Qualified Code(s): I10 - Essential (primary) hypertension (6) Hyponatremia Conclusion/Plan: Patient's sodium is 121 on presentation. Patient appears to have hypovolemic hyponatremia however given his recent diagnosis with recurrence of lung cancer he could possibly have SIADH due to paraneoplastic syndrome. Patient will be given IV fluids and we will continue to monitor his sodium. (7) Hyperlipidemia Conclusion/Plan: Patient has history of hyperlipidemia and takes pravastatin at home. Patient will be continued on his home dose of pravastatin while he is hospitalized. Qualifiers: Hyperlipidemia type: unspecified Qualified Code(s): E78.5 - Hyperlipidemia , unspecified (8) Anxiety and depression Conclusion/Plan: Patient has a history of anxiety and depression. He takes fluoxetine and lorazepam to manage his symptoms. Patient does appear to be anxious on presentation. He will be given p.o. Ativan and continued on his home dose of fluoxetine. - Lab Results Lab results reviewed: Yes Fish Bones: 02/01/18 04:20 02/01/18 00:45 Other Lab Results: Laboratory Results WBC 14.9 x10^3/uL (4.8-10.8) H 02/01/18 04:20 RBC 4.82 10^6/uL (4.70-6.10) 02/01/18 04:20 Hgb 13.9 g/dL (14.0-18.0) L 02/01/18 04:20 Hct 42.2 % (42.0-52.0) 02/01/18 04:20 MCV 87.5 fL (80.0-94.0) 02/01/18 04:20 MCH 28.8 pg (27.0-31.0) 02/01/18 04:20 MCHC 32.9 g/dL (32.0-36.0) 02/01/18 04:20 RDW 16.6 % (12.0-15.0) H 02/01/18 04:20 Plt Count 241 10^3/uL (130-450) 02/01/18 04:20 MPV 7.0 fL (7.4-11.4) L 02/01/18 04:20 Neut # (Auto) 14.0 10^3/uL (1.5-6.6) H 02/01/18 04:20 Lymph # (Auto) 0.6 10^3/uL (1.5-3.5) L 02/01/18 04:20 Long # (Auto) 0.3 10^3/uL (0.0-1.0) 02/01/18 04:20 Eos # (Auto) 0.0 10^3/uL (0.0-0.7) 02/01/18 04:20 Baso # (Auto) 0.0 10^3/uL (0.0-0.1) 02/01/18 04:20 Absolute Nucleated RBC 0.00 x10^3/uL 02/01/18 04:20 Nucleated RBC % 0.0 /100WBC 02/01/18 04:20 Sodium 121 mmol/L (135-145) L 02/01/18 00:45 Potassium 4.2 mmol/L (3.5-5.0) 02/01/18 00:45 Chloride 85 mmol/L (101-111) L 02/01/18 00:45 Carbon Dioxide 27 mmol/L (21-32) 02/01/18 00:45 Anion Gap 9.0 (6-13) 02/01/18 00:45 BUN 13 mg/dL (6-20) 02/01/18 00:45 Creatinine 1.0 mg/dL (0.6-1.2) 02/01/18 00:45 Estimated GFR (MDRD) 73 (>89) L 02/01/18 00:45 Glucose 110 mg/dL (70-100) H 02/01/18 00:45 Lactic Acid 1.4 mmol/L (0.5-2.2) 02/01/18 00:45 Calcium 8.0 mg/dL (8.5-10.3) L 02/01/18 00:45 Phosphorus 2.5 mg/dL (2.5-4.6) 02/01/18 04:20 Magnesium 1.6 mg/dL (1.7-2.8) L 02/01/18 04:20 Total Bilirubin 1.3 mg/dL (0.2-1.0) H 02/01/18 00:45 AST 41 IU/L (10-42) 02/01/18 00:45 ALT 25 IU/L (10-60) 02/01/18 00:45 Alkaline Phosphatase 61 IU/L (42-121) 02/01/18 00:45 Troponin I < 0.04 ng/mL (<0.49) 02/01/18 00:45 B-Natriuretic Peptide 89 pg/mL (5-100) 02/01/18 00:45 Total Protein 7.4 g/dL (6.7-8.2) 02/01/18 00:45 Albumin 3.3 g/dL (3.2-5.5) 02/01/18 00:45 Globulin 4.1 g/dL (2.1-4.2) 02/01/18 00:45 Albumin/Globulin Ratio 0.8 (1.0-2.2) L 02/01/18 00:45 Lipase 30 U/L (22-51) 02/01/18 00:45 - Diagnostic Imaging Results Diagnostic Imaging Results: positive: Final report reviewed Diagnostic Imaging Results Comments: EXAM: CT ANGIOGRAM CHEST EXAM DATE: 02/01/2018 02:10 AM. CLINICAL HISTORY: Shortness of breath. History of lung cancer. COMPARISON: 01/04/2018. TECHNIQUE: Routine helical imaging was performed through the chest in the pulmonary arterial phase. IV Contrast: ISOVUE 300 80mL. Reconstructions: Coronal 3-D MIP reconstructions.Sagittal and coronal. In accordance with CT protocol optimization, one or more of the following dose reduction techniques were utilized for this exam: automated exposure control, adjustment of mA and/or KV based on patient size, or use of iterative reconstructive technique. FINDINGS: Pulmonary Arteries: Diagnostic quality: Adequate through the segmental arteries. No evidence for acute or chronic pulmonary emboli. There is encasement and narrowing of multiple pulmonary artery branches, most severe in the right upper lobe. No evidence of right heart strain. Lungs/Pleura: There is worsening perihilar and paramediastinal soft tissue density, right much greater than left. Some of this may be due to radiation. There may be progression of malignancy as well. There is encasement and narrowing of the bronchi, right worse than left. Worsening postobstructive infiltrates are seen in the right lung, most severe in the upper lobe. Focal right lower lobe opacity is seen possibly representing metastasis, measuring 1.2 cm, series 6 image 109. New patchy groundglass opacities are seen in the lingula and left lower lobe. There is possible asymmetric pulmonary vascular congestion, right worse than left. No definite pleural effusion is seen. No pneumothorax is noted. Mediastinum: Heart size is normal. Coronary artery calcifications. Increased mediastinal and right hilar adenopathy. Thoracic Aorta: Moderate atherosclerosis. No aneurysm or dissection. Upper Abdomen: Liver cysts are again seen. There are some liver lesions which are not well characterized. These are similar compared with the prior CT. Other: Possible osseous metastatic disease in the spine. IMPRESSION: 1. No pulmonary emboli seen. 2. Worsening perihilar and paramediastinal soft tissue densities, right greater than left. Some of this is probably due to radiation but there could be progression of malignancy as well. 3. Narrowing of right pulmonary artery branches and bronchi with extensive postobstructive infiltrates. There is milder degree of narrowing on the left as well. 4. Infiltrate versus metastasis in the right lower lobe. 5. New groundglass infiltrates in the lingula and left lower lobe, possibly pneumonia. 6. Increasing mediastinal and right hilar adenopathy. 7. Possible osseous metastatic disease in the spine. - EKG Results EKG Interpreted Independently: Yes EKG Findings: No ST elevations or ischemic changes noted Core Measures - Anticipated LOS I expect patient to be DC'd or transferred within 96 hours.: Yes - DVT/VTE - Prophylaxis VTE/DVT Prophylaxis med ordered at admit?: Yes
[2018-02-01] MEDS: guaiFENesin/CODEINE 5 ML UDC PO PRN ×2 (06:33→13:52)
[2018-02-01] MEDS ORDERED: PANTOPRAZOLE 40 MG TABLET PO SCH (07:00)
[2018-02-01] MEDS: IPRATROPIUM/ALBUTEROL 3 ML NEB INH SCH ×4 (08:11→19:51)
[2018-02-01] MEDS ORDERED: MAGNESIUM SULFATE 1 GM in SODIUM CHLORIDE 0.9% 50 ML IV ONE (08:30)
[2018-02-01] MEDS: FLUoxetine 10 MG CAPSULE PO SCH (10:20)
[2018-02-01] MEDS: PRAMIPEXOLE 0.25 MG TABLET PO SCH (10:21)
[2018-02-01] MEDS: MONTELUKAST 10 MG TABLET PO SCH (10:23)
[2018-02-01] MEDS: ASPIRIN EC 81 MG TABLET PO SCH (10:23)
[2018-02-01] MEDS: METOPROLOL TARTRATE 50 MG TABLET PO SCH (10:24)
[2018-02-01] MEDS: SACCHAROMYCES BOULARDII 250 MG CAPSULE PO SCH ×2 (10:24→17:06)
[2018-02-01] MEDS: hydroCHLOROthiazide 12.5 MG CAPSULE PO SCH (10:24)
[2018-02-01] MEDS: LOSARTAN 50 MG TABLET PO SCH (10:25)
[2018-02-01] MEDS: POLYETHYLENE GLYCOL 3350 17 GM PACKET PO SCH (10:26)
[2018-02-01] MEDS: ENOXAPARIN 40 MG/0.4 ML SYRINGE SUBQ SCH (10:26)
[2018-02-01] MEDS: MULTIVITAMIN TABLET PO SCH (10:27)
[2018-02-01] MEDS: SODIUM CHLORIDE FLUSH 0.9% 10 ML SYRINGE IVP SCH ×2 (10:27→17:06)
[2018-02-01] MEDS ORDERED: guaiFENesin 600 MG TABLET PO SCH (12:00)
[2018-02-01] MEDS: LORazepam 2 MG/ML VIAL IVP PRN ×3 (13:51→19:39)
[2018-02-01 14:17] LABS: ABG PCO2 40 mmHg (34-45)
[2018-02-01 14:18] LABS: ABG BASE EXCESS -0.8 mmol/L (-2.0-3.0); ABG HCO3 23.9 mmol/L (22.0-26.0); ABG PO2 44 mmHg (80-100); ABG TCO2 25.1 MMOL/L (21.0-29.0)
[2018-02-01 14:20] LABS: ABG OXYGEN SATURATION 79 % (94-98)
[2018-02-01 14:21] LABS: ALLEN TEST POSITIVE
[2018-02-01] MEDS: MORPHINE 2 MG/ML SYRINGE IVP PRN ×4 (14:42→21:05)
[2018-02-01] MEDS: CEFEPIME 2 GM in SODIUM CHLORIDE 0.9% MINIBAG 100 ML IV SCH ×2 (14:48→22:34)
[2018-02-01] MEDS ORDERED: PIPERACILLIN/TAZOBACTAM 3.375 GM in SODIUM CHLORIDE 0.9% MINIBAG 100 ML IV SCH (15:00)
[2018-02-01] MEDS ORDERED: VANCOMYCIN PER PHARMACY 1 GM in SODIUM CHLORIDE 0.9% 250 ML IV SCH (15:00)
[2018-02-01 15:44] LABS: ABG BASE EXCESS -2.5 mmol/L (-2.0-3.0); ABG HCO3 21.4 mmol/L (22.0-26.0); ABG OXYGEN SATURATION 95 % (94-98); ABG PCO2 34 mmHg (34-45); ABG PH 7.41 (7.35-7.45); ABG PO2 77 mmHg (80-100); ABG TCO2 22.4 MMOL/L (21.0-29.0)
[2018-02-01 15:45] LABS: ALLEN TEST POSITIVE
[2018-02-01] MEDS: VANCOMYCIN INJ 1 GM, VANCOMYCIN INJ 500 MG in SODIUM CHLORIDE 0.9% 500 ML IV SCH (16:45)
--- NOTE | 2018-02-01 17:50 | PROVIDER PROGRESS NOTE ---
Subjective - Prog Note Date Prog Note Date: 02/01/18 - Subjective Pt reports feeling: Worse Subjective: pt present worsening and difficult breath at this afternoon. after pt is on HHFNC, pt's ABGs has a great improved. pt report he was just seen by his oncologist two days,and wait for his PET scan, and pt will have January 10 appointment with his oncologist and January 14 appointment with thoracic surgeon on [facility]. discuss code status with pt, pt still request full code at this point. Current Medications - Current Medications Current Medications: Active Medications Acetaminophen (Tylenol) 650 mg PO Q4HR PRN PRN Reason: Pain 1 to 4 Albuterol/Ipratropium (Duoneb) 3 ml INH RTQID PRN PRN Reason: Wheezing Last Admin: 02/01/18 16:38 Dose: 3 ml Albuterol/Ipratropium (Duoneb) 3 ml INH RTQID ITZ Stop: 02/02/18 06:59 Last Admin: 02/01/18 17:31 Dose: Not Given Aspirin (Ecotrin) 81 mg PO DAILY ITZ Last Admin: 02/01/18 10:23 Dose: 81 mg Enoxaparin Sodium (Lovenox) 40 mg SUBQ DAILY ITZ Last Admin: 02/01/18 10:26 Dose: 40 mg Fluoxetine HCl (Prozac) 40 mg PO DAILY ITZ Last Admin: 02/01/18 10:20 Dose: 40 mg Guaifenesin/Codeine Phosphate (Robitussin Ac) 5 ml PO Q6HR PRN PRN Reason: Cough Last Admin: 02/01/18 13:52 Dose: 5 ml Hydrochlorothiazide (Hydrodiuril) 12.5 mg PO DAILY ITZ Last Admin: 02/01/18 10:24 Dose: 12.5 mg Sodium Chloride (Normal Saline 0.9%) 1,000 mls @ 100 mls/hr IV .Q10H ITZ Stop: 02/01/18 23:59 Last Infusion: 02/01/18 16:45 Dose: 0 mls/hr Vancomycin HCl 1 gm/Vancomycin HCl 500 mg/ Sodium Chloride 500 mls @ 250 mls/ hr IV Q12H ITZ Last Admin: 02/01/18 16:45 Dose: 250 mls/hr Cefepime HCl 2 gm/ Sodium (Chloride) 100 mls @ 200 mls/hr IV TID [facility] Last Infusion: 02/01/18 15:48 Dose: Infused Lorazepam (Ativan Inj (Vial)) 0.5 mg IVP Q2H PRN PRN Reason: Anxiety Last Admin: 02/01/18 17:36 Dose: 0.5 mg Losartan Potassium (Cozaar) 100 mg PO DAILY [facility] Last Admin: 02/01/18 10:25 Dose: 100 mg Metoprolol Tartrate (Lopressor) 100 mg PO DAILY [facility] Last Admin: 02/01/18 10:24 Dose: 100 mg Montelukast Sodium (Singulair) 10 mg PO DAILY [facility] Last Admin: 02/01/18 10:23 Dose: 10 mg Morphine Sulfate (Morphine) 2 mg IVP Q2H PRN PRN Reason: PAIN Last Admin: 02/01/18 16:45 Dose: 2 mg Multivitamins (Theragran) 1 tab PO DAILYWM [facility] Last Admin: 02/01/18 10:27 Dose: 1 tab Nicotine (Nicoderm) 1 patch TOP DAILY [facility] Last Admin: 02/01/18 10:21 Dose: 1 patch Ondansetron HCl (Zofran Inj) 4 mg IVP Q6HR PRN PRN Reason: Nausea / Vomiting Oxycodone HCl (Roxicodone) 5 mg PO Q4HR PRN PRN Reason: Pain 5 to 7 Last Admin: 02/01/18 04:09 Dose: 5 mg Oxycodone HCl (Roxicodone) 10 mg PO Q4HR PRN PRN Reason: Pain 8 to 10 Pantoprazole Sodium (Protonix) 40 mg PO QDAC [facility] Last Admin: 02/01/18 06:21 Dose: 40 mg Polyethylene Glycol (Miralax) 17 gm PO DAILY [facility] Last Admin: 02/01/18 10:26 Dose: Not Given Pramipexole Dihydrochloride (Mirapex) 0.25 mg PO DAILY [facility] Last Admin: 02/01/18 10:21 Dose: 0.25 mg Pravastatin Sodium (Pravachol) 10 mg PO QPM [facility] Prednisone (Deltasone) 40 mg PO DAILYWM [facility] Last Admin: 02/01/18 10:25 Dose: 40 mg Prochlorperazine Edisylate (Compazine Inj) 10 mg IVP Q6HR PRN PRN Reason: Nausea / Vomiting Promethazine HCl (Phenergan Inj) 25 mg IM Q6HR PRN PRN Reason: Nausea / Vomiting Saccharomyces Boulardii (Florastor) 250 mg PO BIDWM [facility] Last Admin: 02/01/18 17:06 Dose: 250 mg Sodium Chloride (Normal Saline Flush 0.9%) 10 ml IVP PRN PRN PRN Reason: NEEDED PER PROVIDER ORDERS Sodium Chloride (Normal Saline Flush 0.9%) 10 ml IVP 0100,0900,1700 [facility] Last Admin: 02/01/18 17:06 Dose: Not Given Zolpidem Tartrate (Ambien) 5 mg PO QPM PRN PRN Reason: Insomnia Aspirin [Aspirin EC] 81 mg PO DAILY 01/19/18 Fluoxetine HCl 40 mg PO DAILY 01/19/18 Fluticasone/Salmeterol [Advair 100-50 Diskus] 1 each INH BID 01/19/18 LORazepam [Lorazepam] 0.5 - 1 mg PO QPM PRN 01/19/18 Losartan/Hydrochlorothiazide [Hyzaar 100-12.5 Tablet] 1 each PO QPM 01/19/18 Metoprolol Tartrate 100 mg PO DAILY 01/19/18 Montelukast Sodium 10 mg PO QPM 01/19/18 Multivitamin [Multivitamins] 1 each PO DAILY 01/19/18 Pantoprazole Sodium 40 mg PO QDAC 01/19/18 Pravastatin Sodium 10 mg PO DAILY 01/19/18 Sildenafil Citrate [Viagra] 50 - 100 mg PO ONCE PRN 01/19/18 Testosterone Cypionate [Depo-Testosterone] 200 mg IM Q14D 01/19/18 Umeclidinium Brm/Vilanterol Tr [Anoro Ellipta 62.5-25 Mcg INH] 1 each INH DAILY 01/19/18 Aspirin [Abhijeet] 325 mg PO DAILY 02/01/18 Ipratropium/Albuterol Sulfate [Iprat-Albut 0.5-3(2.5) mg/3 ml] 3 ml IN QID PRN 02/01/18 Objective - Vital Signs/Intake & Output Reviewed Vital Signs: Yes Vital Signs: Vital Signs x48h Temp Pulse Pulse Resp BP BP Pulse Ox 02/01/18 16:38 90 22 02/01/18 15:28 36.8 C 96 22 151/92 H 97 02/01/18 13:40 139/79 H 02/01/18 13:35 36.4 C L 92 22 190/90 H 91 L 02/01/18 12:19 87 20 02/01/18 10:24 155/73 H Intake & Output: Intake & Output 01/29/18 01/30/18 01/31/18 02/01/18 23:59 23:59 23:59 23:59 Intake Total 2085.333 Output Total 826 Balance 1259.333 - Objective General Appearance: positive: Alert, Mild distress. negative: Lethargic Eyes Bilateral: positive: Normal inspection, PERRL, No lid inflammation, Conjunctivae nml ENT: positive: ENT inspection nml, Pharynx nml, No signs of dehydration. negative: Purulent nasal drainage, Pharyngeal erythema, Oral lesions Neck: positive: Nml inspection, Thyroid nml, No JVD, Trachea midline. negative : Thyromegaly, Lymphadenopathy (R), Lymphadenopathy (L), Stiff neck, Carotid bruit, Swelling/bruising, Tracheal deviation Respiratory: positive: Chest non-tender, No respiratory distress, Rales, Rhonchi , Other. negative: Wheezes Cardiovascular: positive: Regular rate & rhythm, No murmur, No gallop, Tachycardia. negative: Irregularly irregular, Extrasystoles, Bradycardia, JVD present, Systolic murmur, Diastolic murmur Peripheral Pulses: 2+ Radial (R), 2+ Radial (L), 2+ Dorsalis pedis (R), 2+ Dorsalis pedis (L) Abdomen: positive: Non-tender, No organomegaly, Nml bowel sounds, No distention. negative: Tenderness, Guarding, Rebound Back: positive: Nml inspection. negative: CVA tenderness (R), CVA tenderness (L ) Skin: positive: Color nml, No rash, Warm, Dry. negative: Cyanosis, Diaphoresis , Pallor Extremities: positive: Non-tender, Full ROM, Nml appearance. negative: Calf tenderness, Joint swelling, Frantz's sign/cords Neurologic/Psychiatric: positive: Oriented x3, Motor nml, Sensation nml, Mood/ affect nml. negative: Weakness, Sensory loss, Facial droop, Slurred/abnml speech, Depressed mood/affect - Lab Results Fish Bones: 02/01/18 04:20 02/01/18 00:45 Other Labs: Lab Results x24hrs 02/01/18 02/01/18 02/01/18 Range/Units 15:35 14:08 04:20 WBC (4.8-10.8) x10^3/uL RBC (4.70-6.10) 10^6/uL Hgb (14.0-18.0) g/dL Hct (42.0-52.0) % MCV (80.0-94.0) fL MCH (27.0-31.0) pg MCHC (32.0-36.0) g/dL RDW (12.0-15.0) % Plt Count (130-450) 10^3/uL MPV (7.4-11.4) fL Neut # (Auto) (1.5-6.6) 10^3/uL Lymph # (Auto) (1.5-3.5) 10^3/uL [place] # (Auto) (0.0-1.0) 10^3/uL Eos # (Auto) (0.0-0.7) 10^3/uL Baso # (Auto) (0.0-0.1) 10^3/uL Absolute Nucleated RBC x10^3/uL Nucleated RBC % /100WBC Bld Gas Analysis Time 1543 1416 Sample Site LEFT RADIAL RIGHT RADIAL ABG pH 7.41 7.40 (7.35-7.45) ABG pCO2 34 40 (34-45) mmHg ABG pO2 77 L 44 L* (80-100) mmHg ABG HCO3 21.4 L 23.9 (22.0-26.0) mmol/L ABG Total CO2 22.4 25.1 (21.0-29.0) MMOL/L ABG O2 Saturation 95 79 L* (94-98) % ABG Oximetry Spot Check 97 92 % ABG Base Excess -2.5 L -0.8 (-2.0-3.0) mmol/L Christiano Test POSITIVE POSITIVE Respiration Rate 22 20 b/min O2 Delivery Device NON REBREATHER MASK NASAL CANNULA O2 Liters/Min 15.00 4.50 LPM Phosphorus 2.5 (2.5-4.6) mg/dL Magnesium 1.6 L (1.7-2.8) mg/dL 02/01/18 Range/Units 04:20 WBC 14.9 H (4.8-10.8) x10^3/uL RBC 4.82 (4.70-6.10) 10^6/uL Hgb 13.9 L (14.0-18.0) g/dL Hct 42.2 (42.0-52.0) % MCV 87.5 (80.0-94.0) fL MCH 28.8 (27.0-31.0) pg MCHC 32.9 (32.0-36.0) g/dL RDW 16.6 H (12.0-15.0) % Plt Count 241 (130-450) 10^3/uL MPV 7.0 L (7.4-11.4) fL Neut # (Auto) 14.0 H (1.5-6.6) 10^3/uL Lymph # (Auto) 0.6 L (1.5-3.5) 10^3/uL [place] # (Auto) 0.3 (0.0-1.0) 10^3/uL Eos # (Auto) 0.0 (0.0-0.7) 10^3/uL Baso # (Auto) 0.0 (0.0-0.1) 10^3/uL Absolute Nucleated RBC 0.00 x10^3/uL Nucleated RBC % 0.0 /100WBC Bld Gas Analysis Time Sample Site ABG pH (7.35-7.45) ABG pCO2 (34-45) mmHg ABG pO2 (80-100) mmHg ABG HCO3 (22.0-26.0) mmol/L ABG Total CO2 (21.0-29.0) MMOL/L ABG O2 Saturation (94-98) % ABG Oximetry Spot Check % ABG Base Excess (-2.0-3.0) mmol/L Christiano Test Respiration Rate b/min O2 Delivery Device O2 Liters/Min LPM Phosphorus (2.5-4.6) mg/dL Magnesium (1.7-2.8) mg/dL ABX Reporting Has patient been on IV antibiotics over the past 48 hours?: Yes Assessment/Plan - Problem List (1) Pneumonia Impression: Conclusion/Plan: 02/01 pt is ongoing metastatic lung cancer at stage 4, with pneumonia, and elevated WBC switch antibiotic to cefepime and vancomycin daily lab monitor vital and tele monitor Patient presented with hypoxia, shortness of breath and cough. He was in mild respiratory distress on presentation. Patient had leukocytosis and hyponatremia. Patient's pneumonia severity index put him at a risk class V which has a mortality of 27-29% and hospitalization was recommended. The CT of the patient's chest revealed postobstructive infiltrates in the right lung, infiltrates in the right lower lobe and new groundglass infiltrates in the left lower lobe. Patient appears to have extensive pneumonia and extensive cancer in his lungs. This is likely also leading to COPD exacerbation as he has diffuse wheezing, rhonchi and coarse breath sounds. Plan: Treat patient with IV ceftriaxone and azithromycin for community-acquired pneumonia Treat COPD exacerbation with duo nebs and steroids Supplemental oxygen Discuss with oncology about possible transfer due to progressing lung cancer and possible postobstructive pneumonia. Robitussin as needed for cough Qualifiers: Laterality: unspecified laterality Qualified Code(s): J18.9 - Pneumonia, unspecified organism (2) COPD exacerbation Conclusion/Plan: IV antibiotics Duo nebs Prednisone p.o. daily Supplemental oxygen Patient appears to have COPD exacerbation in the setting of a pneumonia and recurrence of cancer. The patient also continues to smoke. On presentation the patient is hypoxic and in some mild respiratory distress. The patient has wheezing diffusely. He was given several nebulizer treatments in the emergency department with mild improvement. He was also given steroids in the emergency department. Plan: 02/01Treat pneumonia with IV antibiotics Duo nebs around the clock 24 hours and as needed Prednisone p.o. daily Supplemental oxygen Advised to quit smoking (3) Lung cancer Conclusion/Plan: 02/01 pt just saw his oncologist and will see his oncologist on January 10. will transfer if pt need bronchoscopy or stent for his possible postobstructive pneumonia. Pt has respiratory distress at this afternoon, will stabilize. the new ABGs reveals 95% PO2 after HHFNC Patient has a history of lung cancer and now appears to have recurrence of disease. He is being followed by oncology as an outpatient. He is scheduled for a PET CT scan and then will follow up with oncology. Compared to his CT 1 month ago it appears on CT today that he has progression of his cancer and now also has infiltrates and pneumonia with possible postobstructive pneumonia. Patient will be treated here with IV antibiotics. We will contact the patient' s oncologist to see if patient needs to be transferred to Center with oncology or if he can be treated here with just IV antibiotics. I am concerned if he does have postobstructive pneumonia that he may need to be started on treatment for his cancer in order to control the pneumonia or that he may need a bronch or stent. (4) Tobacco abuse Conclusion/Plan: Patient continues to smoke despite diagnosis of cancer a number of years back and now recurrence of cancer. Patient states he has tried this quit many times but has been unsuccessful. Patient was counseled on his need to quit smoking. He will be given a nicotine patch while he is hospitalized. (5) Hypertension Conclusion/Plan: Patient has a history of hypertension and takes metoprolol as well as losartan/ hydrochlorothiazide for control of his hypertension. On presentation to the emergency department the patient was normotensive. Patient will be continued on his home antihypertensive medications while he is hospitalized. We will continue to monitor the patient's blood pressure and titrate medications as needed Qualifiers: Hypertension type: essential hypertension Qualified Code(s): I10 - Essential (primary) hypertension (6) Hyponatremia Conclusion/Plan: Patient's sodium is 121 on presentation. Patient appears to have hypovolemic hyponatremia however given his recent diagnosis with recurrence of lung cancer he could possibly have SIADH due to paraneoplastic syndrome. Patient will be given IV fluids and we will continue to monitor his sodium. (7) Hyperlipidemia Conclusion/Plan: Patient has history of hyperlipidemia and takes pravastatin at home. Patient will be continued on his home dose of pravastatin while he is hospitalized. Qualifiers: Hyperlipidemia type: unspecified Qualified Code(s): E78.5 - Hyperlipidemia , unspecified (8) Anxiety and depression Conclusion/Plan: Patient has a history of anxiety and depression. He takes fluoxetine and lorazepam to manage his symptoms. Patient does appear to be anxious on presentation. He will be given p.o. Ativan and continued on his home dose of fluoxetine.
[2018-02-01 18:01] LABS: ABG HCO3 24.9 mmol/L (22.0-26.0); ABG PCO2 41 mmHg (34-45); ABG PH 7.41 (7.35-7.45); ABG PO2 95 mmHg (80-100)
[2018-02-01 18:02] LABS: ABG BASE EXCESS 0.2 mmol/L (-2.0-3.0); ABG OXYGEN SATURATION 96 % (94-98); ABG TCO2 26.1 MMOL/L (21.0-29.0); ALLEN TEST POSITIVE
[2018-02-01] MEDS ORDERED: LORazepam 2 MG/ML VIAL IVP PRN (19:42)
[2018-02-01] MEDS ORDERED: FUROSEMIDE 40 MG/4 ML VIAL IVP STA (20:11)
[2018-02-01] MEDS ORDERED: SODIUM CHLORIDE FLUSH 0.9% 10 ML SYRINGE IVP PRN (20:27)
[2018-02-01] MEDS ORDERED: PRAVASTATIN 10 MG TABLET PO SCH (21:00)
[2018-02-01] MEDS: SODIUM CHLORIDE FLUSH 0.9% 10 ML SYRINGE IVP PRN ×2 (21:05→21:55)
--- NOTE | 2018-02-01 22:20 | XRAY Report ---
Procedure Date: 02/01/2018 Accession Number: [id number] / [id number] Procedure: XR - Chest 1 View X-Ray CPT Code: 44047 FULL RESULT: EXAM: CHEST RADIOGRAPHY EXAM DATE: 02/01/2018 08:44 PM. CLINICAL HISTORY: Worsening hypoxia and shortness of breath. COMPARISON: CHEST FOR LINE PLACEMENT 01/22/2018. TECHNIQUE: 1 view. FINDINGS: Lungs/Pleura: Increased indistinct interstitial markings. Dense opacification of the left lower lobe Mediastinum: Stable contours Other: Port-A-Cath tip terminates in the proximal SVC. IMPRESSION: Worsened pulmonary edema. Dense opacification left lower lobe may reflect alveolar edema or infection. [facility]
[2018-02-01] MEDS ORDERED: ROCURONIUM 50 MG/5 ML VIAL IVP ONE (22:53)
[2018-02-01] MEDS: KETAMINE 500 MG/10 ML VIAL IVP ONE ×2 (23:06→23:11)
[2018-02-01] MEDS ORDERED: LIDOCAINE-MPF 1% 5 ML VIAL ONE (23:07)
[2018-02-01] MEDS ORDERED: PROPOFOL 1000 MG/100 ML 100 ML IV ONE (23:09)
[2018-02-01] MEDS ORDERED: SODIUM CHLORIDE FLUSH 0.9% 10 ML SYRINGE ONE (23:10)
[2018-02-01] MEDS: PROPOFOL 1000 MG/100 ML 100 ML IV SCH (23:22)
--- NOTE | 2018-02-02 00:10 | XRAY Report ---
Procedure Date: 02/01/2018 Accession Number: [id number] / [id number] Procedure: XR - Chest 1 View X-Ray CPT Code: 81120 FULL RESULT: EXAM: CHEST RADIOGRAPHY EXAM DATE: 02/01/2018 11:56 PM. CLINICAL HISTORY: Post intubation chest x-ray. COMPARISON: CHEST 1 VIEW 02/01/2018 CHEST ANGIO 02/01/2018. TECHNIQUE: 1 view. FINDINGS: Support devices: Endotracheal tube tip about 4 cm above the rosa isela. Enteric tube tip in the stomach. Stable left Port-A-Cath. Lungs/Pleura: Moderate to severe bilateral opacities are stable given decreased inspiration currently. No gross pneumothorax. No increasing effusion. Mediastinum: Stable heart size. No mediastinal shift. Other: None. IMPRESSION: 1. Stable support devices. 2. Moderate to severe bilateral opacities are grossly stable. [facility]
--- NOTE | 2018-02-02 00:13 | PROVIDER PROGRESS NOTE ---
Subjective - Prog Note Date Prog Note Date: 02/01/18 Prog Note Time: 23:30 - Subjective Pt reports feeling: Worse (Patient with increasing respiratory distress and anxiety. Patient in severe respiratory distress, tachypneic and very anxious. Despite being on high flow nasal cannula patient became increasingly restless and using accessory muscles of breathing. Chest x-ray showed pulmonary edema. Patient given IV Lasix with good urine output however no improvement in his respiratory condition. Spoke with patient and patient's family and decision was made to intubate the patient.) Current Medications - Current Medications Current Medications: Active Medications Generic Name Dose Route Start Last Admin Trade Name Freq PRN Reason Stop Dose Admin Acetaminophen 650 mg 02/01/18 03:02 Tylenol PO Q4HR PRN Pain 1 to 4 Albuterol/Ipratropium 3 ml 02/01/18 03:02 02/01/18 16:38 Duoneb INH 3 ml RTQID PRN Administration Wheezing Albuterol/Ipratropium 3 ml 02/01/18 07:00 02/01/18 19:51 Duoneb INH 02/02/18 06:59 3 ml RTQID ITZ Administration Aspirin 81 mg 02/01/18 09:00 02/01/18 10:23 Ecotrin PO 81 mg DAILY ITZ Administration Chlorhexidine Gluconate 15 ml 02/02/18 09:00 Peridex PO BID ITZ Enoxaparin Sodium 40 mg 02/01/18 09:00 02/01/18 10:26 Lovenox SUBQ 40 mg DAILY ITZ Administration Fentanyl 50 mcg 02/02/18 00:30 02/02/18 00:48 Fentanyl IVP 50 mcg Q30M PRN Administration PAIN Fluoxetine HCl 40 mg 02/01/18 09:00 02/01/18 10:20 Prozac PO 40 mg DAILY ITZ Administration Guaifenesin/Codeine Phosphate 5 ml 02/01/18 04:20 02/01/18 13:52 Robitussin Ac PO 5 ml Q6HR PRN Administration Cough Hydrochlorothiazide 12.5 mg 02/01/18 09:00 02/01/18 10:24 Hydrodiuril PO 12.5 mg DAILY ITZ Administration Vancomycin HCl 1 gm/ 500 mls @ 250 mls/hr 02/01/18 16:00 02/01/18 18:51 Vancomycin HCl 500 mg/ Sodium IV Infused Chloride Q12H ITZ Infusion Cefepime HCl 2 gm/ Sodium 100 mls @ 200 mls/hr 02/01/18 14:30 02/01/18 23:05 Chloride IV Infused TID ITZ Infusion Midazolam HCl 50 mg in 100 mls @ 8.72 mls/hr 02/02/18 01:00 02/02/18 03:00 Versed Drip IV 0.07 mg/kg/hr .[id number] ITZ 15.26 mls/hr Protocol Titration 0.04 MG/KG/HR Fentanyl 2,500 mcg/ Sodium 250 mls @ 10.9 mls/hr 02/02/18 01:00 02/02/18 03: 00 Chloride IV 1 mcg/kg/hr .[id number] ITZ 10.9 mls/hr Protocol Titration 1 MCG/KG/HR Norepinephrine Bitartrate 8 mg 250 mls @ 15 mls/hr 02/02/18 04:00 02/02/18 04 :12 / Dextrose IV 8 mcg/min .[id number] ITZ 15 mls/hr Protocol Administration 8 MCG/MIN Losartan Potassium 100 mg 02/01/18 09:00 02/01/18 10:25 Cozaar PO 100 mg DAILY ITZ Administration Metoprolol Tartrate 100 mg 02/01/18 09:00 02/01/18 10:24 Lopressor PO 100 mg DAILY ITZ Administration Midazolam HCl 10 mg 02/02/18 00:30 Versed IVP Q30M PRN Anxiety Montelukast Sodium 10 mg 02/01/18 09:00 02/01/18 10:23 Singulair PO 10 mg DAILY ITZ Administration Multivitamins 1 tab 02/01/18 08:00 02/01/18 10:27 Theragran PO 1 tab DAILYWM ITZ Administration Nicotine 1 patch 02/01/18 05:00 02/01/18 10:21 Nicoderm TOP 1 patch DAILY ITZ Administration Ondansetron HCl 4 mg 02/01/18 03:02 Zofran Inj IVP Q6HR PRN Nausea / Vomiting Oxycodone HCl 5 mg 02/01/18 03:02 02/01/18 04:09 Roxicodone PO 5 mg Q4HR PRN Administration Pain 5 to 7 Oxycodone HCl 10 mg 02/01/18 03:02 Roxicodone PO Q4HR PRN Pain 8 to 10 Pantoprazole Sodium 40 mg 02/02/18 07:00 Protonix IVP QDAC ITZ Polyethylene Glycol 17 gm 02/01/18 09:00 02/01/18 10:26 Miralax PO Not Given DAILY [facility] Pramipexole Dihydrochloride 0.25 mg 02/01/18 09:00 02/01/18 10:21 Mirapex PO 0.25 mg DAILY ITZ Administration Pravastatin Sodium 10 mg 02/01/18 21:00 Pravachol PO QPM ITZ Prednisone 40 mg 02/01/18 04:00 02/01/18 10:25 Deltasone PO 40 mg DAILYWM ITZ Administration Prochlorperazine Edisylate 10 mg 02/01/18 03:02 Compazine Inj IVP Q6HR PRN Nausea / Vomiting Promethazine HCl 25 mg 02/01/18 03:02 Phenergan Inj IM Q6HR PRN Nausea / Vomiting Saccharomyces Boulardii 250 mg 02/01/18 08:00 02/01/18 17:06 Florastor PO 250 mg BIDWM ITZ Administration Sodium Chloride 10 ml 02/01/18 03:02 02/02/18 00:51 Normal Saline Flush 0.9% IVP 10 ml PRN PRN Administration NEEDED PER PROVIDER ORDERS Sodium Chloride 10 ml 02/01/18 09:00 02/02/18 00:51 Normal Saline Flush 0.9% IVP 10 ml 0100,0900,1700 ITZ Administration Sodium Chloride 20 ml 02/01/18 20:27 02/01/18 20:31 Normal Saline Flush 0.9% IVP 20 ml PRN PRN Administration After Blood Draw Zolpidem Tartrate 5 mg 02/01/18 03:02 Ambien PO QPM PRN Insomnia Aspirin [Aspirin EC] 81 mg PO DAILY 01/19/18 Fluticasone/Salmeterol [Advair 100-50 Diskus] 1 each INH BID 01/19/18 Losartan/Hydrochlorothiazide [Hyzaar 100-12.5 Tablet] 1 each PO QPM 01/19/18 Multivitamin [Multivitamins] 1 each PO DAILY 01/19/18 RX: Fluoxetine HCl 40 mg PO DAILY 01/19/18 RX: LORazepam [Lorazepam] 0.5 - 1 mg PO QPM PRN 01/19/18 RX: Metoprolol Tartrate 100 mg PO DAILY 01/19/18 RX: Montelukast Sodium 10 mg PO QPM 01/19/18 RX: Pantoprazole Sodium 40 mg PO QDAC 01/19/18 RX: Pravastatin Sodium 10 mg PO DAILY 01/19/18 Sildenafil Citrate [Viagra] 50 - 100 mg PO ONCE PRN 01/19/18 Testosterone Cypionate [Depo-Testosterone] 200 mg IM Q14D 01/19/18 Umeclidinium Brm/Vilanterol Tr [Anoro Ellipta 62.5-25 Mcg INH] 1 each INH DAILY 01/19/18 Aspirin [Abhijeet] 325 mg PO DAILY 02/01/18 Ipratropium/Albuterol Sulfate [Iprat-Albut 0.5-3(2.5) mg/3 ml] 3 ml IN QID PRN 02/01/18 Objective - Vital Signs/Intake & Output Reviewed Vital Signs: Yes Vital Signs: Vital Signs Temp Pulse Resp BP Pulse Ox 02/01/18 22:00 36.7 C 98 20 124/86 H 93 Intake & Output: Intake & Output 01/30/18 01/31/18 02/01/18 02/02/18 23:59 23:59 23:59 23:59 Intake Total 2813.666 Output Total 2476 375 Balance 337.666 -375 - Objective General Appearance: positive: Severe distress (respiratory distress, tachypneic , diaphoretic, thrashing, agitated, using accessory muscles of breathing), Anxious Eyes Bilateral: positive: Normal inspection, PERRL, EOMI, No lid inflammation, Conjunctivae nml, No scleral icterus ENT: positive: ENT inspection nml, Pharynx nml, No signs of dehydration. negative: Purulent nasal drainage, Pharyngeal erythema, Oral lesions Neck: positive: Nml inspection, Thyroid nml, No JVD, Trachea midline. negative : Thyromegaly, Lymphadenopathy (R), Lymphadenopathy (L), Stiff neck, Kernig's sign, Brudzinski's sign, Carotid bruit, Swelling/bruising, Tracheal deviation Respiratory: positive: Wheezes, Rales, Rhonchi, Other (Severe respiratory distress) Cardiovascular: positive: No murmur, No gallop, Tachycardia Abdomen: positive: Non-tender, No organomegaly, Nml bowel sounds, No distention , Other (Obese) Back: positive: Nml inspection. negative: CVA tenderness (R), CVA tenderness (L ) Skin: positive: No rash, Warm, Diaphoresis. negative: Cyanosis, Pallor Extremities: positive: Non-tender, Full ROM, Nml appearance, No pedal edema Neurologic/Psychiatric: positive: Oriented x3, CN's nml (2-12), Motor nml, Sensation nml, Other (very anxious) - Lab Results Fish Bones: 02/02/18 03:10 02/02/18 03:10 Other Labs: Lab Results x24hrs 02/01/18 02/01/18 02/01/18 Range/Units 17:52 15:35 14:08 WBC (4.8-10.8) x10^3/uL RBC (4.70-6.10) 10^6/uL Hgb (14.0-18.0) g/dL Hct (42.0-52.0) % MCV (80.0-94.0) fL MCH (27.0-31.0) pg MCHC (32.0-36.0) g/dL RDW (12.0-15.0) % Plt Count (130-450) 10^3/uL MPV (7.4-11.4) fL Neut # (Auto) (1.5-6.6) 10^3/uL Lymph # (Auto) (1.5-3.5) 10^3/uL Monona # (Auto) (0.0-1.0) 10^3/uL Eos # (Auto) (0.0-0.7) 10^3/uL Baso # (Auto) (0.0-0.1) 10^3/uL Absolute Nucleated RBC x10^3/uL Nucleated RBC % /100WBC Bld Gas Analysis Time 3828 [id number] 1416 Sample Site LEFT RADIAL LEFT RADIAL RIGHT RADIAL ABG pH 7.41 7.41 7.40 (7.35-7.45) ABG pCO2 41 34 40 (34-45) mmHg ABG pO2 95 77 L 44 L* (80-100) mmHg ABG HCO3 24.9 21.4 L 23.9 (22.0-26.0) mmol/L ABG Total CO2 26.1 22.4 25.1 (21.0-29.0) MMOL/L ABG O2 Saturation 96 95 79 L* (94-98) % ABG Oximetry Spot Check 98 97 92 % ABG Base Excess 0.2 -2.5 L -0.8 (-2.0-3.0) mmol/L Christiano Test POSITIVE POSITIVE POSITIVE Respiration Rate 22 22 20 b/min O2 Delivery Device HHFNC NON REBREATHER MASK NASAL CANNULA O2 Liters/Min 30.00 15.00 4.50 LPM FiO2 85.00 Phosphorus (2.5-4.6) mg/dL Magnesium (1.7-2.8) mg/dL 02/01/18 02/01/18 Range/Units 04:20 04:20 WBC 14.9 H (4.8-10.8) x10^3/uL RBC 4.82 (4.70-6.10) 10^6/uL Hgb 13.9 L (14.0-18.0) g/dL Hct 42.2 (42.0-52.0) % MCV 87.5 (80.0-94.0) fL MCH 28.8 (27.0-31.0) pg MCHC 32.9 (32.0-36.0) g/dL RDW 16.6 H (12.0-15.0) % Plt Count 241 (130-450) 10^3/uL MPV 7.0 L (7.4-11.4) fL Neut # (Auto) 14.0 H (1.5-6.6) 10^3/uL Lymph # (Auto) 0.6 L (1.5-3.5) 10^3/uL Monona # (Auto) 0.3 (0.0-1.0) 10^3/uL Eos # (Auto) 0.0 (0.0-0.7) 10^3/uL Baso # (Auto) 0.0 (0.0-0.1) 10^3/uL Absolute Nucleated RBC 0.00 x10^3/uL Nucleated RBC % 0.0 /100WBC Bld Gas Analysis Time Sample Site ABG pH (7.35-7.45) ABG pCO2 (34-45) mmHg ABG pO2 (80-100) mmHg ABG HCO3 (22.0-26.0) mmol/L ABG Total CO2 (21.0-29.0) MMOL/L ABG O2 Saturation (94-98) % ABG Oximetry Spot Check % ABG Base Excess (-2.0-3.0) mmol/L Christiano Test Respiration Rate b/min O2 Delivery Device O2 Liters/Min LPM FiO2 Phosphorus 2.5 (2.5-4.6) mg/dL Magnesium 1.6 L (1.7-2.8) mg/dL - Diagnostic Imaging Diagnostic Imaging Results: positive: Final report reviewed Diagnostic Imaging Comments: Chest x-ray 02/01/2018 at 2010 Impression: Worsened pulmonary edema. Dense opacification left lower lobe may reflect alveolar edema or infection. Chest x-ray 02/01/2018 at 2325 Impression: 1. Stable support devices. 2. Moderate to severe bilateral opacities are grossly stable Assessment/Plan - Problem List (1) Acute respiratory failure with hypoxia Impression: Patient intubated late in the evening on 02/01/2018 for increasing hypoxia, increasing work of breathing and severe respiratory distress. Patient's repeat chest x-ray showed increasing pulmonary edema and infiltrates. Patient was given IV Lasix with lots of output but not much improvement in his respiratory status. Respiratory failure is likely multifactorial secondary to diffuse pneumonia, postobstructive pneumonia, tumor burden within the lungs due to cancer and pulmonary edema. Plan: Continue vent management IV antibiotics broad-spectrum with vancomycin and cefepime day 1 Continue IV steroids and nebs Continue IV Lasix 40 mg twice daily Wean vent once patient improving Consider transfer for higher level of care (2) Septic shock Impression: Once being intubated the patient became hypotensive and increasingly acidotic with metabolic acidosis seen on ABG. Patient was given 2 L of IV fluid with minimal improvement in his blood pressure. Patient had leukocytosis of 14,000, tachycardia and respiratory failure. Source of septic shock is likely bilateral pneumonia. Plan: Place patient on Levophed and titrate for map greater than 65 IV fluids IV antibiotics vancomycin and cefepime day 1 Monitor lactic acid (3) CAP (community acquired pneumonia) Impression: Patient admitted with community acquired pneumonia but became worse over the course of the day and antibiotics were changed to cover broad-spectrum with vancomycin and cefepime. This is likely cause of patient's septic shock and respiratory failure. Continue treatment with IV antibiotics and ventilator Qualifiers: Laterality: unspecified laterality Qualified Code(s): J18.9 - Pneumonia, unspecified organism (4) COPD exacerbation Impression: Patient has COPD exacerbation secondary to pneumonia and lung cancer. Patient is now on ventilator. We will continue patient on neb treatments and IV steroids. Patient will continue on IV antibiotics. We will manage the vent and titrate as needed. (5) Lung cancer Impression: Patient appears to have progressing lung cancer from just 1 month ago. This is likely causing postobstructive pneumonia. This is also contributing to the respiratory failure of the patient. Patient is currently on a ventilator. Patient will likely need transfer to a higher level of care given the critical condition of the patient and need for specialty care. Qualifiers: Laterality: unspecified laterality (6) Tobacco abuse Impression: Patient was counseled and asked to quit. Patient has nicotine patch while he is hospitalized. 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 Patient also appeared to be dry on presentation and was given IV fluids with minimal improvement to his sodium. (9) Anxiety and depression Impression: Patient will be continued on IV Ativan as needed while he is intubated.
[2018-02-02] MEDS ORDERED: FUROSEMIDE 40 MG/4 ML VIAL IVP STA (00:14)
[2018-02-02] MEDS ORDERED: fentaNYL 100 MCG/2 ML VIAL IVP PRN (00:30)
[2018-02-02] MEDS ORDERED: MIDAZOLAM 50 MG/10 ML VIAL IVP PRN (00:30)
[2018-02-02] MEDS ORDERED: LORazepam 2 MG/ML VIAL ONE (00:34)
[2018-02-02] MEDS: MIDAZOLAM 2 MG/2 ML VIAL IVP ONE ×2 (00:46→02:15)
[2018-02-02] MEDS ORDERED: FUROSEMIDE 40 MG/4 ML VIAL ONE (00:50)
[2018-02-02] MEDS: SODIUM CHLORIDE FLUSH 0.9% 10 ML SYRINGE IVP SCH ×2 (00:51→09:53)
[2018-02-02] MEDS: SODIUM CHLORIDE FLUSH 0.9% 10 ML SYRINGE IVP PRN (00:51)
[2018-02-02] MEDS ORDERED: fentaNYL 2,500 MCG in SODIUM CHLORIDE 0.9% 200 ML IV SCH (01:00)
[2018-02-02] MEDS ORDERED: SODIUM CHLORIDE 0.9% 1,000 ML IV ONE ×4 (01:38→03:01)
[2018-02-02] MEDS: PROPOFOL 1000 MG/100 ML 100 ML IV SCH (01:56)
[2018-02-02] MEDS: MIDAZOLAM DRIP 50 MG/100 ML BAG IV SCH ×2 (02:00→08:54)
[2018-02-02] MEDS ORDERED: SODIUM CHLORIDE FLUSH 0.9% 10 ML SYRINGE ONE (02:15)
[2018-02-02 02:26] LABS: ABG HCO3 23.3 mmol/L (22.0-26.0); ABG PCO2 54 mmHg (34-45); ABG PH 7.25 (7.35-7.45)
[2018-02-02 02:27] LABS: ABG BASE EXCESS -4.5 mmol/L (-2.0-3.0); ABG OXYGEN SATURATION 99 % (94-98); ALLEN TEST POSITIVE
[2018-02-02 02:28] LABS: ABG PO2 202 mmHg (80-100)
[2018-02-02 03:20] LABS: BASOPHILS # (AUTO) 0.1 10^3/uL (0.0-0.1); BASOPHILS % (AUTO) 0.5 %; HGB - HEMOGLOBIN 11.7 g/dL (14.0-18.0); LYMPHOCYTES # (AUTO) 0.7 10^3/uL (1.5-3.5); LYMPHOCYTES % (AUTO) 4.8 %; MEAN CORPUSCULAR HGB CONC 32.6 g/dL (32.0-36.0); MEAN CORPUSCULAR VOLUME 88.9 fL (80.0-94.0); MEAN PLATELET VOLUME 6.3 fL (7.4-11.4); MONOCYTES # (AUTO) 0.9 10^3/uL (0.0-1.0); MONOCYTES % (AUTO) 6.4 %; NEUTROPHILS # (AUTO) 12.9 10^3/uL (1.5-6.6); NEUTROPHILS % (AUTO) 88.3 %; PLT - PLATELET COUNT 237 10^3/uL (130-450); RED BLOOD COUNT 4.05 10^6/uL (4.70-6.10); RED CELL DISTRIBUTION WIDTH 16.5 % (12.0-15.0); WHITE BLOOD COUNT 14.6 x10^3/uL (4.8-10.8)
[2018-02-02 03:32] LABS: ALBUMIN 2.9 g/dL (3.2-5.5); ALBUMIN/GLOBULIN RATIO 0.9 (1.0-2.2); ALKALINE PHOSPHATASE 51 IU/L (42-121); ALT ALANINE AMINOTRANSFERASE 21 IU/L (10-60); AST ASPARTATE AMINOTRANSFERASE 35 IU/L (10-42); BILIRUBIN,TOTAL 0.7 mg/dL (0.2-1.0); BUN - BLOOD UREA NITROGEN 17 mg/dL (6-20); CARBON DIOXIDE - CO2 26 mmol/L (21-32); CHLORIDE 89 mmol/L (101-111); CREATININE 1.3 mg/dL (0.6-1.2); GFR - MDRD 54 (>89); GLUCOSE 144 mg/dL (70-100); SODIUM 122 mmol/L (135-145)
[2018-02-02 03:42] LABS: VBG PH 7.295 (7.31-7.41)
[2018-02-02] MEDS: VANCOMYCIN INJ 1 GM, VANCOMYCIN INJ 500 MG in SODIUM CHLORIDE 0.9% 500 ML IV SCH (04:10)
[2018-02-02] MEDS: IPRATROPIUM/ALBUTEROL 3 ML NEB INH PRN ×3 (05:19→11:30)
[2018-02-02] MEDS ORDERED: FUROSEMIDE 40 MG/4 ML VIAL IVP SCH (06:00)
[2018-02-02] MEDS: CEFEPIME 2 GM in SODIUM CHLORIDE 0.9% MINIBAG 100 ML IV SCH (06:32)
[2018-02-02 06:35] LABS: ABG PH 7.38 (7.35-7.45)
[2018-02-02 06:36] LABS: ABG HCO3 26.4 mmol/L (22.0-26.0); ABG PCO2 46 mmHg (34-45); ABG PO2 136 mmHg (80-100); ABG TCO2 27.8 MMOL/L (21.0-29.0)
[2018-02-02 06:37] LABS: ABG BASE EXCESS 0.8 mmol/L (-2.0-3.0); ABG OXYGEN SATURATION 99 % (94-98); ALLEN TEST POSITIVE
[2018-02-02] MEDS ORDERED: PANTOPRAZOLE 40 MG VIAL IVP SCH (07:00)
--- NOTE | 2018-02-02 07:45 | XRAY Report ---
Procedure Date: 02/02/2018 Accession Number: [id number] / [id number] Procedure: XR - Chest 1 View X-Ray CPT Code: 41703 FULL RESULT: EXAM: CHEST RADIOGRAPHY EXAM DATE: 02/02/2018 05:57 AM. CLINICAL HISTORY: Intubated patient, daily CXR. COMPARISON: Chest radiograph dated 02/01/2018. TECHNIQUE: 1 view. FINDINGS: Lungs/Pleura: Patchy opacities in the right upper lobe and throughout the left lung are again demonstrated and similar to the prior examination. Mediastinum: Left heart border silhouetted by the adjacent airspace process. Other: The ET tube is positioned 5.3 cm above the rosa isela. The remainder of the support lines and tubes are similar. IMPRESSION: 1. The ET tube is positioned 5.3 cm above the rosa isela. 2. Remainder similar. RADIA
[2018-02-02] MEDS ORDERED: SODIUM CHLORIDE 3% HYPERTONIC 500 ML IV SCH (08:00)
[2018-02-02] MEDS: predniSONE 20 MG TABLET PO SCH (08:55)
[2018-02-02] MEDS: SACCHAROMYCES BOULARDII 250 MG CAPSULE PO SCH (08:55)
[2018-02-02] MEDS: ASPIRIN EC 81 MG TABLET PO SCH (08:55)
[2018-02-02] MEDS: MULTIVITAMIN TABLET PO SCH (08:55)
[2018-02-02] MEDS ORDERED: cefTRIAXone 2 GM in SODIUM CHLORIDE 0.9% MINIBAG 100 ML IV SCH (09:00)
[2018-02-02] MEDS ORDERED: CHLORHEXIDINE GLUCONATE 15 ML UDC PO SCH (09:00)
[2018-02-02] MEDS ORDERED: CALCIUM GLUCONATE 2,000 MG in SODIUM CHLORIDE 0.9% 100ML 100 ML IV ONE (09:44)
[2018-02-02] MEDS: NICOTINE 21 MG PATCH TOP SCH (09:46)
[2018-02-02] MEDS: ENOXAPARIN 40 MG/0.4 ML SYRINGE SUBQ SCH (09:46)
[2018-02-02] MEDS: hydroCHLOROthiazide 12.5 MG CAPSULE PO SCH (09:52)
[2018-02-02] MEDS: METOPROLOL TARTRATE 50 MG TABLET PO SCH (09:52)
[2018-02-02] MEDS: FLUoxetine 10 MG CAPSULE PO SCH (09:52)
[2018-02-02] MEDS: LOSARTAN 50 MG TABLET PO SCH (09:52)
[2018-02-02] MEDS: PRAMIPEXOLE 0.25 MG TABLET PO SCH (09:53)
[2018-02-02] MEDS: MONTELUKAST 10 MG TABLET PO SCH (09:53)
[2018-02-02] MEDS: POLYETHYLENE GLYCOL 3350 17 GM PACKET PO SCH (09:53)
[2018-02-02] MEDS ORDERED: SODIUM CHLORIDE 0.9% 500 ML IV PRN (11:59)
--- NOTE | 2018-02-02 13:28 | Discharge Plan ---
Discharge Plan Disposition: 02 Transfer Acute Care Hosp Condition: Critical Diet: Low Sodium Activity Restrictions: Activity as Tolerated Shower Restrictions: No Driving Restrictions: No Assistance Devices: Wheelchair Weight Bearing: Partial Weight No Smoking: If you smoke, Please STOP! Call for help. Follow-up with: Lindsay Mcgovern MD [Primary Care Provider] -
--- NOTE | 2018-02-02 13:33 | DISCHARGE SUMMARY ---
Discharge Summary Admit Date: 01/30/18 Discharge Date: 02/02/18 Discharging Provider: Avril Gallardo DO Primary Care Provider: Lindsay Mcgovern Code Status: Attempt Resuscitation Condition at Discharge: Critical Discharge Disposition: 02 Transfer Acute Care Hosp Discharge [facility] Name: [facility] - DIAGNOSES Admission Diagnoses: 1. Community-acquired pneumonia 2. COPD exacerbation 3. Lung cancer 4. Tobacco abuse 5. Hypertension 6. Hyponatremia 7. Hyperlipidemia 8. Anxiety and depression Discharge Diagnoses with Status of Each Condition: 1. Community-acquired pneumonia -The patient has bilateral pneumonia and also seems to also have postobstructive pneumonia secondary to his lung cancer. He is declining rapidly and had to be placed in the intensive care unit on vasopressors last night. I spoken with [facility] and will be transferring him over there as this is where his oncologist is. 2. COPD exacerbation- Likely secondary to bilateral pneumonia. The patient is intubated on a ventilator and will be transferred to [facility] later today. Continue steroids and bronchodilators 3. Lung cancer- Newly diagnosed, right middle lobe squamous cell. The patient appears to have postobstructive pneumonia as well. We are transferring him to [facility] where his oncologist works. 4. Tobacco abuse- The patient reportedly continues to smoke despite his lung cancer and COPD diagnoses. He has been on a nicotine patch since he has been inpatient. Continue with nicotine patch and smoking cessation efforts. 5. Hypertension - The patient became hypotensive overnight and had to be placed on vasopressors. His blood pressure stable at this time. 6. Hyponatremia - The patient's sodium was extremely low at 122. I have started him on hypertonic saline. 7. Hyperlipidemia - Patient has a history of hyperlipidemia, continue statins 8. Anxiety and depression- Continue fluoxetine and Ativan while inpatient. 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 The patient states that he regularly checks his oxygen saturations at home and they usually run between 95 and 97%. He states that tonight when he checked his oxygen saturation and had dropped down to 88% and therefore he decided to come into the emergency department. The patient states he does have a chronic cough but has been slightly worse the last couple of days with increasing sputum production. The patient also states that he has been slightly more short of breath over the last day. He denies any fevers or chills but does admit to sweats. He denies any chest pain, palpitations, orthopnea or increased lower extremity swelling. The patient denies any recent unintentional weight loss or changes in his appetite. Patient denies any headaches, blurred vision, runny nose, sore throat, nasal congestion, difficulty swallowing, abdominal pain, nausea, vomiting, diarrhea, constipation, urinary urgency, urinary frequency, dysuria, joint pain, joint swelling, muscle aches, back pain, neck stiffness, skin rash, hair loss, or any focal neurologic deficits. On presentation to the emergency department the patient was afebrile heart rate was elevated at 99 and blood pressure was within normal limits. The patient did appear to be tachypneic and was in some mild respiratory distress. The patient was oxygenating at 89% on room air and had to be placed on 2 L of oxygen to maintain a oxygen saturation of around 93%. The patient's lab work revealed a leukocytosis of 14.4 and 8 hyponatremia with a sodium of 121. The patient's troponin was less than 0.04 and his BNP was only 89. The patient underwent a CT angiogram of his thorax which revealed worsening perihilar and para mediastinal soft tissue densities, right greater than left. Narrowing of the right pulmonary artery branches and bronchi with extensive postop obstructive infiltrates. Infiltrate versus metastasis in the right lower lobe and new groundglass infiltrates in the lingula and left lower lobe possibly pneumonia. The patient appeared very wheezy with rhonchorous breath sounds on lung exam. Patient was treated with neb treatments, prednisone and Rocephin in the emergency department and [facility] and COPD exacerbation. The patient's pneumonia severity index puts him at risk class V which has a mortality of 27-29% and hospitalization is recommended. - HOSPITAL COURSE Hospital Course: The patient was admitted to the hospital and shortly afterwards began to experience increasing respiratory distress. He was placed on a nonrebreather mask and his oxygen saturation came up into the 90s. He was doing well with this initially however began to decompensate about 8 hours later and had to be intubated and placed on a ventilator in the intensive care unit. Because of his recent lung cancer diagnosis it was felt prudent to transfer the patient over to [facility] where his oncologist works and where he may receive higher level of care. - ALLERGIES Allergies/Adverse Reactions: Allergies Allergy/AdvReac Type Severity Reaction Status Date / Time bupropion [From Wellbutrin] Allergy Unknown Verified 01/22/18 10:03 fexofenadine HCl * Allergy Cramps Verified 01/22/18 10:03 [From Bessie] Iodinated Contrast- Oral and Allergy Itching Verified 01/22/18 10:03 IV Dye - MEDICATIONS Home Medications: Ambulatory Orders Medication Instructions Recorded Confirmed Aspirin [Aspirin EC] 81 mg PO DAILY 01/19/18 02/01/18 Fluoxetine HCl 40 mg PO DAILY 01/19/18 02/01/18 Fluticasone/Salmeterol [Advair 1 each INH BID 01/19/18 02/01/18 100-50 Diskus] LORazepam [Lorazepam] 0.5 - 1 mg PO QPM PRN 01/19/18 02/01/18 Losartan/Hydrochlorothiazide 1 each PO QPM 01/19/18 02/01/18 [Hyzaar 100-12.5 Tablet] Metoprolol Tartrate 100 mg PO DAILY 01/19/18 02/01/18 Montelukast Sodium 10 mg PO QPM 01/19/18 02/01/18 Multivitamin [Multivitamins] 1 each PO DAILY 01/19/18 02/01/18 Pantoprazole Sodium 40 mg PO QDAC 01/19/18 02/01/18 Pravastatin Sodium 10 mg PO DAILY 01/19/18 02/01/18 Sildenafil Citrate [Viagra] 50 - 100 mg PO ONCE PRN 01/19/18 02/01/18 Testosterone Cypionate 200 mg IM Q14D 01/19/18 02/01/18 [Depo-Testosterone] Umeclidinium Brm/Vilanterol Tr 1 each INH DAILY 01/19/18 02/01/18 [Anoro Ellipta 62.5-25 Mcg INH] Aspirin [Abhijeet] 325 mg PO DAILY 02/01/18 02/01/18 Ipratropium/Albuterol Sulfate 3 ml IN QID PRN 02/01/18 02/01/18 [Iprat-Albut 0.5-3(2.5) mg/3 ml] Cefepime 2 gm IV TID vial 02/02/18 Enoxaparin [Lovenox] 40 mg SUBQ DAILY syringe 02/02/18 Ipratropium/Albuterol [Duoneb] 3 ml INH RTQID PRN neb 02/02/18 Midazolam [Versed] 10 mg IVP Q30M PRN vial 02/02/18 Nicotine 21 mg Patch [Nicoderm] 1 patch TOP DAILY patch 02/02/18 Pantoprazole [Protonix inj] 40 mg IVP QDAC vial 02/02/18 Polyethylene Glycol 3350 [Miralax] 17 gm PO DAILY packet 02/02/18 Pramipexole [Mirapex] 0.25 mg PO DAILY tablet 02/02/18 Zolpidem [Ambien] 5 mg PO QPM PRN tablet 02/02/18 hydroCHLOROthiazide [Hydrodiuril] 12.5 mg PO DAILY capsule 02/02/18 oxyCODONE [Roxicodone] 5 mg PO Q4HR PRN tablet 02/02/18 oxyCODONE [Roxicodone] 10 mg PO Q4HR PRN tablet 02/02/18 predniSONE [Deltasone] 40 mg PO DAILYWM tablet 02/02/18 - PHYSICAL EXAM AT DISCHARGE General Appearance: positive: No acute distress, Other (Sedated) Eyes Bilateral: positive: Normal inspection, PERRL, EOMI, No lid inflammation, Conjunctivae nml, No scleral icterus ENT: positive: ENT inspection nml, Pharynx nml, No signs of dehydration Neck: positive: Nml inspection, Thyroid nml, No JVD, Trachea midline. negative : Thyromegaly Respiratory: positive: Chest non-tender, No respiratory distress, Wheezes, Rhonchi. negative: Rales Cardiovascular: positive: Regular rate & rhythm, No murmur, No gallop Peripheral Pulses: positive: 1+ Abdomen: positive: Non-tender, No organomegaly, Nml bowel sounds, No distention. negative: Guarding, Rebound Back: positive: Nml inspection. negative: CVA tenderness (R), CVA tenderness (L ) Skin: positive: Color nml, No rash, Warm, Dry. negative: Cyanosis Extremities: positive: Non-tender, Full ROM, Nml appearance, Pedal edema Neurologic/Psychiatric: positive: Other (The patient is sedated and ventilated) - LABS Result Diagrams: 02/02/18 03:10 02/02/18 03:10 - DIAGNOSTIC IMAGING Diagnostic Imaging Results: Final report reviewed Diagnostic Imaging Results Comments: EXAM: CT ANGIOGRAM CHEST EXAM DATE: 02/01/2018 02:10 AM. CLINICAL HISTORY: Shortness of breath. History of lung cancer. COMPARISON: 01/04/2018. TECHNIQUE: Routine helical imaging was performed through the chest in the pulmonary arterial phase. IV Contrast: ISOVUE 300 80mL. Reconstructions: Coronal 3-D MIP reconstructions.Sagittal and coronal. In accordance with CT protocol optimization, one or more of the following dose reduction techniques were utilized for this exam: automated exposure control, adjustment of mA and/or KV based on patient size, or use of iterative reconstructive technique. FINDINGS: Pulmonary Arteries: Diagnostic quality: Adequate through the segmental arteries. No evidence for acute or chronic pulmonary emboli. There is encasement and narrowing of multiple pulmonary artery branches, most severe in the right upper lobe. No evidence of right heart strain. Lungs/Pleura: There is worsening perihilar and paramediastinal soft tissue density, right much greater than left. Some of this may be due to radiation. There may be progression of malignancy as well. There is encasement and narrowing of the bronchi, right worse than left. Worsening postobstructive infiltrates are seen in the right lung, most severe in the upper lobe. Focal right lower lobe opacity is seen possibly representing metastasis, measuring 1.2 cm, series 6 image 109. New patchy groundglass opacities are seen in the lingula and left lower lobe. There is possible asymmetric pulmonary vascular congestion, right worse than left. No definite pleural effusion is seen. No pneumothorax is noted. Mediastinum: Heart size is normal. Coronary artery calcifications. Increased mediastinal and right hilar adenopathy. Thoracic Aorta: Moderate atherosclerosis. No aneurysm or dissection. Upper Abdomen: Liver cysts are again seen. There are some liver lesions which are not well characterized. These are similar compared with the prior CT. Other: Possible osseous metastatic disease in the spine. IMPRESSION: 1. No pulmonary emboli seen. 2. Worsening perihilar and paramediastinal soft tissue densities, right greater than left. Some of this is probably due to radiation but there could be progression of malignancy as well. 3. Narrowing of right pulmonary artery branches and bronchi with extensive postobstructive infiltrates. There is milder degree of narrowing on the left as well. 4. Infiltrate versus metastasis in the right lower lobe. 5. New groundglass infiltrates in the lingula and left lower lobe, possibly pneumonia. 6. Increasing mediastinal and right hilar adenopathy. 7. Possible osseous metastatic disease in the spine. EXAM: CHEST RADIOGRAPHY EXAM DATE: 02/01/2018 08:44 PM. CLINICAL HISTORY: Worsening hypoxia and shortness of breath. COMPARISON: CHEST FOR LINE PLACEMENT 01/22/2018. TECHNIQUE: 1 view. FINDINGS: Lungs/Pleura: Increased indistinct interstitial markings. Dense opacification of the left lower lobe Mediastinum: Stable contours Other: Port-A-Cath tip terminates in the proximal SVC. IMPRESSION: Worsened pulmonary edema. Dense opacification left lower lobe may reflect alveolar edema or infection. EXAM: CHEST RADIOGRAPHY EXAM DATE: 02/01/2018 11:56 PM. CLINICAL HISTORY: Post intubation chest x-ray. COMPARISON: CHEST 1 VIEW 02/01/2018 CHEST ANGIO 02/01/2018. TECHNIQUE: 1 view. FINDINGS: Support devices: Endotracheal tube tip about 4 cm above the rosa isela. Enteric tube tip in the stomach. Stable left Port-A-Cath. Lungs/Pleura: Moderate to severe bilateral opacities are stable given decreased inspiration currently. No gross pneumothorax. No increasing effusion. Mediastinum: Stable heart size. No mediastinal shift. Other: None. IMPRESSION: 1. Stable support devices. 2. Moderate to severe bilateral opacities are grossly stable. EXAM: CHEST RADIOGRAPHY EXAM DATE: 02/02/2018 05:57 AM. CLINICAL HISTORY: Intubated patient, daily CXR. COMPARISON: Chest radiograph dated 02/01/2018. TECHNIQUE: 1 view. FINDINGS: Lungs/Pleura: Patchy opacities in the right upper lobe and throughout the left lung are again demonstrated and similar to the prior examination. Mediastinum: Left heart border silhouetted by the adjacent airspace process. Other: The ET tube is positioned 5.3 cm above the rosa isela. The remainder of the support lines and tubes are similar. IMPRESSION: 1. The ET tube is positioned 5.3 cm above the rosa isela. 2. Remainder similar. - FOLLOW UP Follow Up: Follow up with Lindsay Mcgovern 1 week after discharge from [facility]. - TIME SPENT Time Spent in Discharge (Minutes): 45
[2018-02-02 14:04] VITALS: BP 72/50
[2018-02-02] MEDS ORDERED: SODIUM CHLORIDE INHALATION 3 ML NEB ONE (18:50)
--- NOTE | 2018-02-03 00:03 | ED Physician Documentation ---
ED Addendum - Addendum Addendum: 02/02/18 00:02 Called to the ICU to intubate the patient by Dr. Jurado. The patient was given nebulized lidocaine, followed by ketamine, a view of the cords was then obtained so rocuronium was pushed at that time. The glide scope was utilized. An 8-0 tube was too large to pass of the tube was removed, the patient was bagged until his oxygen saturations were above 90% again and then a 7-1/2 ET tube was placed through the vocal cords. It was secured by the respiratory therapist. Chest x-ray will be followed up by the hospitalist. Breath sounds are equal bilaterally. Color change positive. Misting of the tube present.
== END 2018-02-02 14:19 | disposition short-term general hospital (02) | DRG 208 ==
LOC: ED 00:20 → MS2 03:05 → ICU 20:30
PROVIDERS: ADMIT Internal Medicine; ATTEND Hospitalist
PROC: 5A1935Z Respiratory Ventilation, Less than 24 Consecutive Hours (ICD-10-PCS; principal; 2018-02-02)
PROC: 0BH17EZ Insertion of Endotracheal Airway into Trachea, Via Natural or Artificial Opening (ICD-10-PCS; 2018-02-02)
DX: J18.9 Pneumonia, unspecified organism (principal); J96.01 Acute respiratory failure with hypoxia; A41.9 Sepsis, unspecified organism; F17.200 Nicotine dependence, unspecified, uncomplicated; R65.21 Severe sepsis with septic shock; E87.1 Hypo-osmolality and hyponatremia; C77.1 Secondary and unspecified malignant neoplasm of intrathoracic lymph nodes; C34.2 Malignant neoplasm of middle lobe, bronchus or lung; J43.9 Emphysema, unspecified; I10 Essential (primary) hypertension; E78.5 Hyperlipidemia, unspecified; F32.9 Major depressive disorder, single episode, unspecified; F17.210 Nicotine dependence, cigarettes, uncomplicated; F41.0 Panic disorder [episodic paroxysmal anxiety]; K21.9 Gastro-esophageal reflux disease without esophagitis; Z78.1 Physical restraint status; Z79.899 Other long term (current) drug therapy; Z92.21 Personal history of antineoplastic chemotherapy; Z92.3 Personal history of irradiation; Z85.828 Personal history of other malignant neoplasm of skin; Z79.82 Long term (current) use of aspirin; Z79.51 Long term (current) use of inhaled steroids; Z87.11 Personal history of peptic ulcer disease
CPT/HCPCS: 36415; 36600; 71045; 71275; 80053; 82330; 82803; 83605; 83690; 83735; 83880; 84100; 84484; 85025; 87040; 87150; 93005; 94002; 94640; 99284